=== PATIENT | male | born 1960 | race Caucasian/White ===

== ENCOUNTER 2020-10-03 16:36 | Inpatient (IN) | payer BC ==
--- NOTE | 2020-10-03 17:40 | ED ---
General Adult HPI - General Chief complaint: Shortness of Breath Stated complaint: Covid+, Low O2 Time Seen by Provider: 10/03/20 16:58 Source: patient Mode of arrival: wheelchair Limitations: no limitations - History of Present Illness Initial comments: Dictation was produced using [employer] dictation software. please excuse any grammatical, word or spelling errors. This patient was cared for during a federal and state declared state of emergency secondary to Covid 19 Chief Complaint: 59-year-old male presents with cold symptoms for one week History of Present Illness: Patient is a 59-year-old male he has past medical history of diabetes, hypertension. He presents to the emergency department for Covid symptoms. Patient states that he's been symptomatic for 7 days. He never tested positive. He spent having symptoms of shortness of breath, fever, chest pain, generalized weakness and muscle aches. He saw his primary care physician: Come to the emergency department because he may be a candidate for surgery in COVID-19 treatments. Patient states he is so weak and he can't walk because he gets so short of breath as well. He states that his multiple comorbidities. The ROS documented in this emergency department record has been reviewed and confirmed by me. Those systems with pertinent positive or negative responses have been documented in the HPI. All other systems are other negative and/or noncontributory. PHYSICAL EXAM: General Impression: Alert and oriented x3, not in acute distress HEENT: Normocephalic atraumatic, extra-ocular movements intact, pupils equal and reactive to light bilaterally, mucous membranes moist. Cardiovascular: Heart regular rate and rhythm Chest: Able to complete full sentences, no retractions, no tachypnea Abdomen: abdomen soft, non-tender, non-distended, no organomegaly Musculoskeletal: Pulses present and equal in all extremities, no peripheral edema Motor: no focal deficits noted Neurological: CN II-XII grossly intact, no focal motor or sensory deficits noted Skin: Intact with no visualized rashes Psych: Normal affect and mood ED course: 59-year-old male presents to the emergency department for Covid [place] for one week. He denies having had been tested. He was instructed, by his primary care physician. Vital signs upon arrival shows heart rate of 118, pulse ox of 89, worse vital signs within acceptable limits. phone number: Annette [phone] EKG interpretation: Ventricular rate 108, sinus tachycardia,. 162, QRS 90, QTc 455. No MT prolongation, no QTC prolongation, no ST or T-wave changes noted. Overall, this EKG is unremarkable Laboratory evaluation obtained. CBC, coag panel obtained showing no acute processes. Metabolic panel shows mild anion gap acidosis. Slightly from mild dehydration and starvation ketoacidosis. Coronal virus positive. Chest x-ray shows no acute processes. CT shows diffuse bilateral infiltrates. No PE. Patient given Decadron. He'll be admitted for hypoxic respiratory failure case discussed with Dr. Soliz was went except patient's care. Pulmonology be consulted. - Related Data Home Medications Medication Instructions Recorded Confirmed Albuterol Sulfate [Ventolin HFA] 2 puff INHALATION RT-Q4H PRN 10/03/20 10/03/20 HYDROcodone/APAP 10-325MG [[place] 1 tab PO Q8H PRN 10/03/20 10/03/20 10-325] Ivermectin 21 mg PO BID 10/03/20 10/03/20 fluvoxaMINE MALEATE 50 mg PO BID 10/03/20 10/03/20 lisinopriL 20 mg PO DAILY 10/03/20 10/03/20 metFORMIN HCL 500 mg PO DAILY 10/03/20 10/03/20 Allergies Allergy/AdvReac Type Severity Reaction Status Date / Time No Known Allergies Allergy Verified 10/03/20 18:19 Review of Systems ROS Statement: Those systems with pertinent positive or pertinent negative responses have been documented in the HPI. ROS Other: All systems not noted in ROS Statement are negative. Past Medical History Past Medical History: Diabetes Mellitus, Hypertension Additional Past Medical History / Comment(s): sleep apnea History of Any Multi-Drug Resistant Organisms: None Reported Past Surgical History: Back Surgery, Orthopedic Surgery Past Psychological History: No Psychological Hx Reported Smoking Status: Never smoker Past Alcohol Use History: None Reported Past Drug Use History: None Reported General Exam Limitations: no limitations Course Vital Signs 10/03/20 10/03/20 10/03/20 16:52 17:40 17:55 Temperature 99.2 F Pulse Rate 118 H 110 H Respiratory 20 20 Rate Blood Pressure 152/92 137/88 O2 Sat by Pulse 89 L 90 L 89 L Oximetry 10/03/20 10/03/20 19:17 19:21 Temperature Pulse Rate 109 H Respiratory 20 20 Rate Blood Pressure 142/96 O2 Sat by Pulse 90 L Oximetry Medical Decision Making - Lab Data Result diagrams: 10/03/20 17:35 10/03/20 17:35 Lab Results 10/03/20 10/03/20 10/03/20 Range/Units 17:35 17:35 17:35 WBC 10.5 (3.8-10.6) k/uL RBC 5.64 (4.30-5.90) m/uL Hgb 17.0 (13.0-17.5) gm/dL Hct 48.0 (39.0-53.0) % MCV 85.2 (80.0-100.0) fL MCH 30.1 (25.0-35.0) pg MCHC 35.3 (31.0-37.0) g/dL RDW 11.3 L (11.5-15.5) % Plt Count 204 (150-450) k/uL MPV 7.3 Neutrophils % 87 % Lymphocytes % 5 % Monocytes % 5 % Eosinophils % 0 % Basophils % 0 % Neutrophils # 9.1 H (1.3-7.7) k/uL Lymphocytes # 0.5 L (1.0-4.8) k/uL Monocytes # 0.5 (0-1.0) k/uL Eosinophils # 0.0 (0-0.7) k/uL Basophils # 0.0 (0-0.2) k/uL PT (9.0-12.0) sec INR (<1.2) APTT (22.0-30.0) sec Sodium 135 L (137-145) mmol/L Potassium 4.6 (3.5-5.1) mmol/L Chloride 98 (98-107) mmol/L Carbon Dioxide 19 L (22-30) mmol/L Anion Gap 18 mmol/L BUN 23 H (9-20) mg/dL Creatinine 0.95 (0.66-1.25) mg/dL Est GFR (CKD-EPI)AfAm >90 (>60 ml/min/1.73 sqM) Est GFR (CKD-EPI)NonAf 89 (>60 ml/min/1.73 sqM) Glucose 311 H (74-99) mg/dL Calcium 9.6 (8.4-10.2) mg/dL C-Reactive Protein 13.5 H (<1.0) mg/dL Influenza Type A (PCR) Not Detected (Not Detectd) Influenza Type B (PCR) Not Detected (Not Detectd) RSV (PCR) Not Detected (Not Detectd) SARS-CoV-2 (PCR) Detected A (Not Detectd) 10/03/20 Range/Units 17:35 WBC (3.8-10.6) k/uL RBC (4.30-5.90) m/uL Hgb (13.0-17.5) gm/dL Hct (39.0-53.0) % MCV (80.0-100.0) fL MCH (25.0-35.0) pg MCHC (31.0-37.0) g/dL RDW (11.5-15.5) % Plt Count (150-450) k/uL MPV Neutrophils % % Lymphocytes % % Monocytes % % Eosinophils % % Basophils % % Neutrophils # (1.3-7.7) k/uL Lymphocytes # (1.0-4.8) k/uL Monocytes # (0-1.0) k/uL Eosinophils # (0-0.7) k/uL Basophils # (0-0.2) k/uL PT 11.6 (9.0-12.0) sec INR 1.1 (<1.2) APTT 22.7 (22.0-30.0) sec Sodium (137-145) mmol/L Potassium (3.5-5.1) mmol/L Chloride (98-107) mmol/L Carbon Dioxide (22-30) mmol/L Anion Gap mmol/L BUN (9-20) mg/dL Creatinine (0.66-1.25) mg/dL Est GFR (CKD-EPI)AfAm (>60 ml/min/1.73 sqM) Est GFR (CKD-EPI)NonAf (>60 ml/min/1.73 sqM) Glucose (74-99) mg/dL Calcium (8.4-10.2) mg/dL C-Reactive Protein (<1.0) mg/dL Influenza Type A (PCR) (Not Detectd) Influenza Type B (PCR) (Not Detectd) RSV (PCR) (Not Detectd) SARS-CoV-2 (PCR) (Not Detectd) Disposition Clinical Impression: COVID-19 Disposition: ADMITTED IP TO THIS HOSP Condition: Fair Referrals: Nonstaff,Physician [REFERRING] - 1-2 days Decision Time: 19:40
[2020-10-03 17:53] LABS: Basophils % (A) 0 %; Eosinophils % (A) 0 %; Lymphocytes # (A) 0.5 k/uL (1.0-4.8); Lymphocytes % (A) 5 %; MCH 30.1 pg (25.0-35.0); MCHC 35.3 g/dL (31.0-37.0); MCV 85.2 fL (80.0-100.0); Mean Platelet Volume 7.3; Monocytes # (A) 0.5 k/uL (0-1.0); Monocytes % (A) 5 %; Neutrophils # (A) 9.1 k/uL (1.3-7.7); Neutrophils % (A) 87 %; Platelet Count 204 k/uL (150-450); RBC 5.64 m/uL (4.30-5.90); RDW 11.3 % (11.5-15.5); WBC 10.5 k/uL (3.8-10.6)
[2020-10-03] MEDS ORDERED: DEXAMETHASONE SOD PHOSPHATE 10 MG/ML 1 ML VIAL IV STA (17:59)
--- NOTE | 2020-10-03 17:59 | XR ---
EXAMINATION TYPE: XR chest 1V portable DATE OF EXAM: 10/03/2020 COMPARISON: NONE HISTORY: Short of breath. Cough. TECHNIQUE: Single view FINDINGS: Heart is normal. Lungs are clear of consolidation. There is no heart failure. There are no hilar masses. IMPRESSION: No active cardiopulmonary disease. Minimal fibrotic changes.
[2020-10-03 18:04] LABS: INR 1.1 (<1.2); Partial Thromboplastin Time 22.7 sec (22.0-30.0); Prothrombin Time 11.6 sec (9.0-12.0)
[2020-10-03 18:06] LABS: African American GFR (CKD) >90 (>60 ml/min/1.73 sqM); Anion Gap 18 mmol/L; Blood Urea Nitrogen 23 mg/dL (9-20); Calcium 9.6 mg/dL (8.4-10.2); Carbon Dioxide 19 mmol/L (22-30); Chloride 98 mmol/L (98-107); Glucose 311 mg/dL (74-99); Non-African American GFR(CKD) 89 (>60 ml/min/1.73 sqM); Potassium 4.6 mmol/L (3.5-5.1); Sodium 135 mmol/L (137-145)
[2020-10-03 18:17] LABS: C Reactive Protein 13.5 mg/dL (<1.0)
--- NOTE | 2020-10-03 19:34 | CT ---
EXAMINATION TYPE: CT angio chest DATE OF EXAM: 10/03/2020 COMPARISON: None HISTORY: Shortness of breath. CT DLP: 435 mGycm Automated exposure control for dose reduction was used. CONTRAST: Performed with IV Contrast, patient injected with 100 mL of Isovue 370. There are 3-D post processed images. There is reticular incisional patchy infiltrate in the posterior lung burgos. Heart size is normal. T here is no pericardial effusion. There is no pleural effusion. There are no hilar masses. There is no mediastinal adenopathy. There is normal contrast opacification of the pulmonary arteries. There are no filling defects. Thora cic aorta is intact. There is no aneurysm or dissection. Ascending aorta measures 3.6 cm. Bony thorax is intact. Sternum is intact. There is no compression fracture. The ribs appear intact. IMPRESSION: No evidence of pulmonary embolism. Posterior patchy pulmonary interstitial pneumonia.
[2020-10-03] MEDS ORDERED: NALOXONE 0.4 MG/ML 1 ML VIAL IV PRN (19:35)
[2020-10-03] MEDS ORDERED: ALBUTEROL HFA INHALER INHALATION PRN (21:42)
[2020-10-03] MEDS ORDERED: MAG HYDROX/AL HYDROX/SIMETH 30 ML CUP PO PRN (21:43)
[2020-10-03] MEDS: ENOXAPARIN 40 MG/0.4 ML SYRINGE SQ SCH (22:02)
[2020-10-03] MEDS: PANTOPRAZOLE 40 MG TABLET PO SCH (22:02)
[2020-10-03] MEDS: SODIUM CHLORIDE 0.9% 1,000 ML IV SCH (22:49)
[2020-10-03] MEDS ORDERED: CALCIUM CARBONATE 500 MG CHEWABLE PO PRN (23:12)
[2020-10-04] MEDS: ACETAMINOPHEN TAB 325 MG TAB PO PRN ×2 (02:16→22:23)
--- NOTE | 2020-10-04 02:17 | P.HPIM ---
History of Present Illness H&P Date: 10/03/20 Chief Complaint: SOB 59 year old male with hypertension and DM patient comes in with one week history of URI symptoms . started as dry coughing fever, chills and body aches. he saw his PCP , who started him on inhalers and ivermectine for COIVD. he noticed no overall improvement in his symptoms . patient is not vaccinated. he stays home, but admits that he avoids wearing masks when out of his home,. today he comes in due to worsening SOB over past 2 days , he cant even walk to the bathroom without getting SOB. he is also describing pleuritic chest pain when attempting deep breath . he denies any bleeding , or history of blood clots, no recent travel. he claims to be in good health overall. no other family members at home are sick at this time in the ED he tested positive for COVID, was found to be hypoxic , and improved with supplemental oxygen . admitted for close monitoring and care. CTA of the chest negative for acute PE EKG sinus tachy Review of Systems Pertinent positives as noted in HPI. All other systems were reviewed and are negative Past Medical History Past Medical History: Diabetes Mellitus, Hypertension Additional Past Medical History / Comment(s): sleep apnea History of Any Multi-Drug Resistant Organisms: None Reported Past Surgical History: Back Surgery, Orthopedic Surgery Past Anesthesia/Blood Transfusion Reactions: No Reported Reaction Past Psychological History: No Psychological Hx Reported Smoking Status: Never smoker Past Alcohol Use History: None Reported Past Drug Use History: None Reported - Past Family History family Family Medical History: No Reported History Medications and Allergies Home Medications Medication Instructions Recorded Confirmed Type Albuterol Sulfate [Ventolin HFA] 2 puff INHALATION RT-Q4H PRN 10/03/20 10/03/20 History HYDROcodone/APAP 10-325MG [[place] 1 tab PO Q8H PRN 10/03/20 10/03/20 History 10-325] RX: Ivermectin 21 mg PO BID 10/03/20 10/03/20 History RX: fluvoxaMINE MALEATE 50 mg PO BID 10/03/20 10/03/20 History RX: lisinopriL 20 mg PO DAILY 10/03/20 10/03/20 History RX: metFORMIN HCL 500 mg PO DAILY 10/03/20 10/03/20 History Allergies Allergy/AdvReac Type Severity Reaction Status Date / Time No Known Allergies Allergy Verified 10/03/20 18:19 Physical Exam Vitals: Vital Signs Temp Pulse Resp BP Pulse Ox 10/03/20 20:28 99.2 F 109 H 20 142/96 90 L 10/03/20 19:21 20 10/03/20 19:17 109 H 20 142/96 90 L 10/03/20 17:55 110 H 20 137/88 89 L 10/03/20 17:40 90 L 10/03/20 16:52 99.2 F 118 H 20 152/92 89 L Intake and Output 10/03/20 10/03/20 10/03/20 06:59 14:59 22:59 Other: Weight 98.883 kg Constitutional: anxious , takes shallow breaths , talks short sentences Eyes: Anicteric sclerae, moist conjunctiva, Pupils equal round reactive to light ENMT: NC/AT Oropharynx clear, no erythema, or exudates Neck: Supple, FROM, no masses, or JVD No carotid bruits No thyromegaly Lungs: Clear to auscultation Clear to percussion Normal respiratory effort, no accessory muscle use Cardiovascular: Heart tachycardia, normal s1 s2 No murmurs, gallops, or rubs No peripheral edema Abdominal: Soft Nontender, no guarding, rebound or rigidity Abdomen moving with respiration Normoactive bowel sounds No hepatomegaly, No splenomegaly No palpable mass No abdominal wall hernia noted Skin: Normal temperature, tone, texture, turgor No induration No subcutaneous nodules No rash, lesions No ulcers Extremities: No digital cyanosis No clubbing Pedal pulses intact and symmetrical Radial pulses intact and symmetrical No calf tenderness Psychiatric: Alert and oriented to person, place and time Appropriate affect fair judgement Neuro Muscles Strength 5/5 in all 4 extremities Sensation to light touch grossly present throughout Cranial nerves II-XII grossly intact No focal sensory deficits Lymphatics: no palpable cervical or supraclavicular , or inguinal lymph nodes Results CBC & Chem 7: 10/03/20 17:35 10/03/20 17:35 Labs: Abnormal Lab Results - Last 24 Hours (Table) 10/03/20 10/03/20 10/03/20 Range/Units 17:35 17:35 17:35 RDW 11.3 L (11.5-15.5) % Neutrophils # 9.1 H (1.3-7.7) k/uL Lymphocytes # 0.5 L (1.0-4.8) k/uL Sodium 135 L (137-145) mmol/L Carbon Dioxide 19 L (22-30) mmol/L BUN 23 H (9-20) mg/dL Glucose 311 H (74-99) mg/dL C-Reactive Protein 13.5 H (<1.0) mg/dL SARS-CoV-2 (PCR) Detected A (Not Detectd) Thrombosis Risk Factor Assmnt - Choose All That Apply Any of the Below Risk Factors Present?: Yes Each Factor Represents 1 point: Age 41-60 years, Medical pt on bed rest Other Risk Factors: No Other congenital or acquired thrombophilia - If yes, enter type in comment: No Thrombosis Risk Factor Assessment Total Risk Factor Score: 2 Thrombosis Risk Factor Assessment Level: Low Risk Assessment and Plan Assessment: acute hypoxic respiratory failure covid pneumonitis hypertension DM supplemental oxygen as needed decadrone daily vitamin c , zinc, vitamin D monitor vital signs follow inflammatory markers, d dimer, ferritin , ldh, crp follow up renal function pulmonary consult hold ivermectine and inhalers droplet and contact precautions supportive care check A1c , insuline sliding scale resume lisinopril lovenox for DVT PPX GERD tums pPI CODE STATUS:full code DVT prophylaxis: lovenox Discussed with: Patient, ER, RN Anticipated length of stay > than [address]: home A total of 65 minutes was spent on the care of this complex patient more than 50% of the time was spent in counseling and care coordination.
[2020-10-04 07:41] LABS: Glucose,Whole Blood 376 mg/dL (75-99)
[2020-10-04] MEDS: ASCORBIC ACID 500 MG TAB PO SCH (08:47)
[2020-10-04] MEDS: ZINC SULFATE 220 MG CAP PO SCH (08:47)
[2020-10-04] MEDS: PANTOPRAZOLE 40 MG TABLET PO SCH (08:47)
[2020-10-04] MEDS: dexAMETHasone 2 MG TAB PO SCH (08:47)
[2020-10-04] MEDS: lisinopriL 20 MG TAB PO SCH (08:47)
[2020-10-04] MEDS: ENOXAPARIN 40 MG/0.4 ML SYRINGE SQ SCH (08:47)
[2020-10-04] MEDS: CHOLECALCIFEROL 25 MCG (1000 IU) TABLET PO SCH (08:48)
[2020-10-04] MEDS: INSULIN ASPART (NovoLOG) 100 UNIT/ML VIAL SQ SCH ×4 (08:48→21:13)
--- NOTE | 2020-10-04 11:34 | P.PN ---
Objective - Vital Signs Vital signs: Vital Signs Temp 97.6 F 10/04/20 10:10 Pulse 106 H 10/04/20 10:10 Resp 20 10/04/20 10:10 BP 125/75 10/04/20 10:10 Pulse Ox 89 L 10/04/20 10:10 Intake & Output 10/03/20 10/04/20 10/04/20 18:59 06:59 18:59 Intake Total 240 Output Total 800 Balance 240 -800 Weight 98.883 kg 98.883 kg Intake: Intake, IV Titration 240 Amount Sodium Chloride 0.9% 1, 240 000 ml @ 20 mls/hr IV . Q24H [facility] Rx#:[id number] Output: Urine 800 - Labs CBC & Chem 7: 10/03/20 17:35 10/03/20 17:35 Labs: Abnormal Lab Results - Last 24 Hours (Table) 10/03/20 10/03/20 10/03/20 Range/Units 17:35 17:35 17:35 RDW 11.3 L (11.5-15.5) % Neutrophils # 9.1 H (1.3-7.7) k/uL Lymphocytes # 0.5 L (1.0-4.8) k/uL Sodium 135 L (137-145) mmol/L Carbon Dioxide 19 L (22-30) mmol/L BUN 23 H (9-20) mg/dL Glucose 311 H (74-99) mg/dL POC Glucose (mg/dL) (75-99) mg/dL C-Reactive Protein 13.5 H (<1.0) mg/dL SARS-CoV-2 (PCR) Detected A (Not Detectd) 10/04/20 Range/Units 07:38 RDW (11.5-15.5) % Neutrophils # (1.3-7.7) k/uL Lymphocytes # (1.0-4.8) k/uL Sodium (137-145) mmol/L Carbon Dioxide (22-30) mmol/L BUN (9-20) mg/dL Glucose (74-99) mg/dL POC Glucose (mg/dL) 376 H (75-99) mg/dL C-Reactive Protein (<1.0) mg/dL SARS-CoV-2 (PCR) (Not Detectd) Assessment and Plan Plan: 1. acute hypoxic respiratory failure secondary to COVID-19: Stable, continue on oxygen, requiring 2 L., Pulmonology consultation. 2. covid pneumonitis: Continue oxygen bronchodilators decadrone daily vitamin c , zinc, vitamin D, add Rocephin and Zithromax 3. Essential hypertension : Continue current medications, with lisinopril 4. Diabetes type 2 with hyperglycemia: Continue insulin sliding scale CODE STATUS:full code DVT prophylaxis: lovenox Discussed with: Patient Anticipated discharge place: home in 2-3 days
[2020-10-04 11:44] LABS: Basophils # (A) 0.03 X 10*3/uL (0.00-0.10); Basophils % (A) 0.3 %; Eosinophils # (A) 0 X 10*3/uL (0.04-0.35); Eosinophils % (A) 0 %; HCT 44.9 % (39.6-50.0); HGB 15.4 g/dL (13.0-17.0); Lymphocytes # (A) 0.63 X 10*3/uL (0.90-5.00); Lymphocytes % (A) 6.6 %; MCH 29.4 pg (27.0-32.0); MCHC 34.3 g/dL (32.0-37.0); MCV 85.7 fL (80.0-97.0); Mean Platelet Volume 10.9 fL (9.5-12.2); Monocytes % (A) 4.2 %; Neutrophils # (A) 8.51 X 10*3/uL (1.80-7.70); Neutrophils % (A) 88.5 %; Platelet Count 217 X 10*3/uL (140-440); RBC 5.24 X 10*6/uL (4.40-5.60); RDW 11.2 % (11.5-14.5); WBC 9.61 X 10*3/uL (4.50-10.00)
[2020-10-04] MEDS ORDERED: cefTRIAXone 1,000 MG VIAL (IM USE) IM SCH (11:45)
[2020-10-04 11:46] LABS: Glucose,Whole Blood 417 mg/dL (75-99)
[2020-10-04 12:23] LABS: African American GFR (CKD) 70.2 (60.0-200.0); Albumin 4.4 g/dL (3.80-4.90); Anion Gap 17.9 mmol/L (4.00-12.00); BUN/Creat Ratio 25.38 Ratio (12.00-20.00); C Reactive Protein 11.1 mg/dL (0.0-0.8); Calcium 9.4 mg/dL (8.7-10.3); Carbon Dioxide 19.1 mmol/L (21.6-31.8); Globulin 2.2 g/dL (1.6-3.3); Non-African American GFR(CKD) 60.6 (60.0-200.0); Potassium 4.6 mmol/L (3.5-5.5); Total Bilirubin 0.8 mg/dL (0.2-1.2); Total Protein 6.6 g/dL (6.2-8.2)
[2020-10-04] MEDS ORDERED: INSULIN ASPART (NovoLOG) 100 UNIT/ML VIAL SQ ONE (13:00)
[2020-10-04] MEDS ORDERED: REMDESIVIR 200 MG in SODIUM CHLORIDE 0.9% 250 ML IVPB ONE (13:00)
[2020-10-04 13:30] LABS: Ferritin 1686.5 ng/mL (22.0-322.0)
--- NOTE | 2020-10-04 14:14 | P.CNPUL ---
History of Present Illness Consult date: 10/04/20 Requesting physician: Renetta Thomson Reason for consult: dyspnea, hypoxemia, abnormal CXR/CT Chief complaint: COVID-19 pneumonia History of present illness: This is a 59-year-old white male patient with past medical history of hypertension, diabetes mellitus, lifetime nonsmoker, who presented to the emergency department yesterday on 10/03/2020 for evaluation of worsening cough, and shortness of breath. He diagnosed with COVID-19, his chest x-ray in the emergency department showed no active cardiopulmonary disease, and minimal fibrotic changes. His initial onset of symptoms was a week ago and started with the cough, fever and chills. He admits to having one episode of diarrhea, he st ates that the fever chills resolved, however his cough progressed, and he feels more short of breath with any exertion. His lab work was reviewed showing normal white count of 10.5, hemoglobin was 17, he had mild neutrophilia with the [place]rol count of 9.1, and lymphopenia with lymphocyte count of 0.5, d-dimer was negative at 0.50, electrolytes were unremarkable, CO2 is 19, B1 is 23 creatinine was 0.95. His glucose is quite elevated at 311, patient was started on Decadron in the emergency department, his LDH is 248, and CRP was 13.5, AST and ALT mildly elevated at 37 and 57 respectively, alkaline phosphatase is normal at 72. CTA chest showed no evidence of pulmonary embolism, and showed posterior patchy pulmonary interstitial pneumonia. Patient currently on Lovenox 40 mg, he was empirically started on azithromycin and Rocephin, pro-calcitonin level is pending, and he is on oral Decadron 6 mg daily Review of Systems All systems: negative Constitutional: Denies chills, Denies fever Eyes: denies blurred vision, denies pain Ears, nose, mouth and throat: Denies headache, Denies sore throat Cardiovascular: Denies chest pain, Denies shortness of breath Respiratory: Reports cough, Reports dyspnea Gastrointestinal: Denies abdominal pain, Denies diarrhea, Denies nausea, Denies vomiting Musculoskeletal: Denies myalgias Integumentary: Denies pruritus, Denies rash Neurological: Denies numbness, Denies weakness Psychiatric: Denies anxiety, Denies depression Endocrine: Denies fatigue, Denies weight change Past Medical History Past Medical History: Diabetes Mellitus, Hypertension Additional Past Medical History / Comment(s): sleep apnea History of Any Multi-Drug Resistant Organisms: None Reported Past Surgical History: Back Surgery, Orthopedic Surgery Past Anesthesia/Blood Transfusion Reactions: No Reported Reaction Past Psychological History: No Psychological Hx Reported Smoking Status: Never smoker Past Alcohol Use History: None Reported Past Drug Use History: None Reported - Past Family History family Family Medical History: No Reported History Medications and Allergies Home Medications Medication Instructions Recorded Confirmed Type Albuterol Sulfate [Ventolin HFA] 2 puff INHALATION RT-Q4H PRN 10/03/20 10/03/20 History HYDROcodone/APAP 10-325MG [[place] 1 tab PO Q8H PRN 10/03/20 10/03/20 History 10-325] Ivermectin 21 mg PO BID 10/03/20 10/03/20 History fluvoxaMINE MALEATE 50 mg PO BID 10/03/20 10/03/20 History lisinopriL 20 mg PO DAILY 10/03/20 10/03/20 History metFORMIN HCL 500 mg PO DAILY 10/03/20 10/03/20 History Allergies Allergy/AdvReac Type Severity Reaction Status Date / Time No Known Allergies Allergy Verified 10/03/20 18:19 Physical Exam Vitals: Vital Signs Temp Pulse Pulse Resp BP BP Pulse Ox 10/04/20 10:10 97.6 F 106 H 20 125/75 89 L 10/04/20 08:20 103 H 20 10/04/20 06:03 98.6 F 103 H 20 136/85 90 L 10/04/20 02:00 98 F 109 H 16 145/93 90 L 10/03/20 21:11 98.6 F 103 H 20 146/81 87 L 10/03/20 20:28 99.2 F 109 H 20 142/96 90 L 10/03/20 20:00 103 H 20 10/03/20 19:21 20 10/03/20 19:17 109 H 20 142/96 90 L 10/03/20 17:55 110 H 20 137/88 89 L 10/03/20 17:40 90 L 10/03/20 16:52 99.2 F 118 H 20 152/92 89 L Intake and Output 10/03/20 10/04/20 10/04/20 22:59 06:59 14:59 Intake Total 240 Output Total 800 Balance 240 -800 Intake: Intake, IV Titration 240 Amount Sodium Chloride 0.9% 1, 240 000 ml @ 20 mls/hr IV . Q24H [facility] Rx#:[id number] Output: Urine 800 Other: Weight 98.883 kg GENERAL EXAM: Alert, very pleasant 59-year-old white male on 2 l of oxygen, comfortable in no apparent distress. HEAD: Normocephalic/atraumatic. EYES: Normal reaction of pupils, equal size. Conjunctiva pink, sclera white. NOSE: Clear with pink turbinates. THROAT: No erythema or exudates. NECK: No masses, no JVD, no thyroid enlargement, no adenopathy. CHEST: No chest wall deformity. Symmetrical expansion. LUNGS: Equal air entry with no crackles, wheeze, rhonchi or dullness. CVS: Regular rate and rhythm, normal S1 and S2, no gallops, no murmurs, no rubs ABDOMEN: Soft, nontender. No hepatosplenomegaly, normal bowel sounds, no guarding or rigidity. EXTREMITIES: No clubbing, no edema, no cyanosis, 2+ pulses and upper and lower extremities. MUSCULOSKELETAL: Muscle strength and tone normal. SPINE: No scoliosis or deformity SKIN: No rashes CENTRAL NERVOUS SYSTEM: Alert and oriented -3. No focal deficits, tone is normal in all 4 extremities. PSYCHIATRIC: Alert and oriented -3. Appropriate affect. Intact judgment and insight. Results - Laboratory Findings CBC and BMP: 10/04/20 08:11 10/04/20 08:11 PT/INR, D-dimer PT 11.6 sec (9.0-12.0) 10/03/20 17:35 INR 1.1 (<1.2) 10/03/20 17:35 D-Dimer 0.50 mg/L FEU (<0.60) 10/04/20 08:11 Abnormal lab findings: Abnormal Labs 10/03/20 10/03/20 10/03/20 17:35 17:35 17:35 RDW 11.3 L Neutrophils # 9.1 H Lymphocytes # 0.5 L Eosinophils # Sodium 135 L Chloride Carbon Dioxide 19 L Anion Gap BUN 23 H BUN/Creatinine Ratio Glucose 311 H POC Glucose (mg/dL) Ferritin AST ALT Lactate Dehydrogenase C-Reactive Protein 13.5 H SARS-CoV-2 (PCR) Detected A 10/04/20 10/04/20 10/04/20 07:38 08:11 08:11 RDW 11.2 L Neutrophils # 8.51 H Lymphocytes # 0.63 L Eosinophils # 0 L Sodium 132 L Chloride 95 L Carbon Dioxide 19.1 L Anion Gap 17.90 H BUN 33.0 H BUN/Creatinine Ratio 25.38 H Glucose 388 H POC Glucose (mg/dL) 376 H Ferritin 1686.5 H AST 37 H ALT 57 H Lactate Dehydrogenase 248 H C-Reactive Protein 11.1 H SARS-CoV-2 (PCR) 10/04/20 11:41 RDW Neutrophils # Lymphocytes # Eosinophils # Sodium Chloride Carbon Dioxide Anion Gap BUN BUN/Creatinine Ratio Glucose POC Glucose (mg/dL) 417 H Ferritin AST ALT Lactate Dehydrogenase C-Reactive Protein SARS-CoV-2 (PCR) - Diagnostic Findings Chest x-ray: report reviewed, image reviewed CT scan - chest: report reviewed, image reviewed Assessment and Plan Plan: Assessment: #1. Acute hypoxic respiratory failure related to acute COVID-19 pneumonia, patient is a candidate for Remdesivir, will be started on the today on 10/04/2020. One dose of convalescent plasma was also ordered, in addition to prophylactic anticoagulation and steroids #2. Mild hyponatremia likely related to hypovolemia, and hyper glycemia #3. History of hypertension #4. Diabetes mellitus type 2 #5. Nonsmoker Plan: We'll start the patient on Remdesivir Give 1 units of convalescent plasma We'll continue Decadron Blood sugar control We'll continue current dose Lovenox Procalcitonin level Follow-up basic labs tomorrow We'll continue to closely follow his clinical course I performed a history & physical examination of the patient and discussed their management with my nurse practitioner, Amparo Drew. I reviewed the nurse practitioner's note and agree with the documented findings and plan of care. Lung sounds are positive for bibasilar crackles The findings and the impression was discussed with the patient. I attest to the documentation by the nurse practitioner. Time with Patient: Greater than 30
[2020-10-04 14:50] LABS: Hemoglobin A1C 10.9 % (4.0-6.0)
[2020-10-04] MEDS: AZITHROMYCIN 500 MG in SODIUM CHLORIDE 0.9% 250 ML IVPB SCH (15:44)
[2020-10-04 17:38] LABS: Glucose,Whole Blood 277 mg/dL (75-99)
[2020-10-04] MEDS: SODIUM CHLORIDE 0.9% 1,000 ML IV SCH (18:47)
[2020-10-04 21:08] LABS: Glucose,Whole Blood 283 mg/dL (75-99)
[2020-10-05 07:13] LABS: Glucose,Whole Blood 303 mg/dL (75-99)
[2020-10-05] MEDS: ZINC SULFATE 220 MG CAP PO SCH (07:41)
[2020-10-05] MEDS: dexAMETHasone 2 MG TAB PO SCH (07:41)
[2020-10-05] MEDS: CHOLECALCIFEROL 25 MCG (1000 IU) TABLET PO SCH (07:42)
[2020-10-05] MEDS: INSULIN ASPART (NovoLOG) 100 UNIT/ML VIAL SQ SCH ×4 (07:42→20:55)
[2020-10-05] MEDS: ASCORBIC ACID 500 MG TAB PO SCH (07:42)
[2020-10-05] MEDS: ENOXAPARIN 40 MG/0.4 ML SYRINGE SQ SCH (07:42)
[2020-10-05] MEDS: PANTOPRAZOLE 40 MG TABLET PO SCH (07:42)
[2020-10-05] MEDS: lisinopriL 20 MG TAB PO SCH (07:42)
[2020-10-05 11:44] LABS: Basophils # (A) 0.04 X 10*3/uL (0.00-0.10); Basophils % (A) 0.2 %; Eosinophils # (A) 0 X 10*3/uL (0.04-0.35); Eosinophils % (A) 0 %; HGB 14.7 g/dL (13.0-17.0); Lymphocytes # (A) 0.62 X 10*3/uL (0.90-5.00); Lymphocytes % (A) 3.4 %; MCH 29.3 pg (27.0-32.0); MCHC 34.2 g/dL (32.0-37.0); MCV 85.7 fL (80.0-97.0); Mean Platelet Volume 10.8 fL (9.5-12.2); Monocytes # (A) 1.18 X 10*3/uL (0.20-1.00); Monocytes % (A) 6.4 %; Neutrophils % (A) 89.6 %; Platelet Count 269 X 10*3/uL (140-440); RBC 5.02 X 10*6/uL (4.40-5.60); RDW 11.2 % (11.5-14.5); WBC 18.42 X 10*3/uL (4.50-10.00)
[2020-10-05 11:58] LABS: Glucose,Whole Blood 309 mg/dL (75-99)
--- NOTE | 2020-10-05 12:07 | P.PN ---
Subjective Progress Note Date: 10/05/20 Feels okay, on 5 L of oxygen. No chest pain no abdominal pain, no nausea or vomiting. Objective - Vital Signs Vital signs: Vital Signs Temp 98.1 F 10/05/20 09:49 Pulse 101 H 10/05/20 09:49 Resp 18 10/05/20 09:49 BP 138/71 10/05/20 09:49 Pulse Ox 90 L 10/05/20 09:49 Intake & Output 10/04/20 10/05/20 10/05/20 18:59 06:59 18:59 Intake Total 200 Output Total 1700 900 Balance -1700 200 -900 Intake: Blood Product 200 Ffp Pher Conval Covid19 200 Acda 3 Unit [id number] Output: Urine 1700 900 Other: Voiding Method Urinal Urinal # Voids 2 2 - Exam Constitutional: No acute distress, conversant, pleasant Eyes: Anicteric sclerae, moist conjunctiva ENMT: NC/AT Neck:Supple, FROM, no masses, or JVD, No carotid bruits; No thyromegaly Lungs: Clear to auscultation, Clear to percussion, Normal respiratory effort, no accessory muscle use Cardiovascular: Heart regular in rate and rhythm, No murmurs, gallops, or rubs no peripheral edema Abdominal: Soft Nontender, nom distended, no guarding, no rebound or rigidity, Normoactive bowel sounds No hepatomegaly, No splenomegaly, No palpable mass No abdominal wall hernia noted Skin: Normal temperature, tone, texture, turgor, No induration No subcutaneous nodules, No rash, lesions, No ulcers Extremities:No digital cyanosis No clubbing, Pedal pulses intact and symmetrical Radial pulses intact and symmetrical Normal gait and station, No calf tenderness Psychiatric: Alert and oriented to person, place and time, Appropriate affect Intact judgement Neuro: Muscles Strength 5/5 in all 4 extremities, Sensation to light touch grossly present throughout, Cranial nerves II-XII grossly intact. No focal sensory deficits - Labs CBC & Chem 7: 10/05/20 06:58 10/04/20 08:11 Labs: Abnormal Lab Results - Last 24 Hours (Table) 10/04/20 10/04/20 10/04/20 Range/Units 08:11 08:11 12:49 WBC (4.50-10.00) X 10*3/uL RDW (11.5-14.5) % Immature Gran # (0.00-0.04) X 10*3/uL Neutrophils # (1.80-7.70) X 10*3/uL Lymphocytes # (0.90-5.00) X 10*3/uL Monocytes # (0.20-1.00) X 10*3/uL Eosinophils # (0.04-0.35) X 10*3/uL Sodium 132 L (135-145) mmol/L Chloride 95 L (96-109) mmol/L Carbon Dioxide 19.1 L (21.6-31.8) mmol/L Anion Gap 17.90 H (4.00-12.00) mmol/L BUN 33.0 H (9.0-27.0) mg/dL BUN/Creatinine Ratio 25.38 H (12.00-20.00) Ratio Glucose 388 H (70-110) mg/dL POC Glucose (mg/dL) (75-99) mg/dL Hemoglobin A1c 10.9 H (4.0-6.0) % Ferritin 1686.5 H (22.0-322.0) ng/mL AST 37 H (14-35) U/L ALT 57 H (10-49) U/L Lactate Dehydrogenase 248 H (120-246) U/L C-Reactive Protein 11.1 H (0.0-0.8) mg/dL Procalcitonin 0.47 H (0.02-0.09) ng/mL 10/04/20 10/04/20 10/05/20 Range/Units 17:25 21:05 06:58 WBC 18.42 H (4.50-10.00) X 10*3/uL RDW 11.2 L (11.5-14.5) % Immature Gran # 0.08 H (0.00-0.04) X 10*3/uL Neutrophils # 16.50 H (1.80-7.70) X 10*3/uL Lymphocytes # 0.62 L (0.90-5.00) X 10*3/uL Monocytes # 1.18 H (0.20-1.00) X 10*3/uL Eosinophils # 0 L (0.04-0.35) X 10*3/uL Sodium (135-145) mmol/L Chloride (96-109) mmol/L Carbon Dioxide (21.6-31.8) mmol/L Anion Gap (4.00-12.00) mmol/L BUN (9.0-27.0) mg/dL BUN/Creatinine Ratio (12.00-20.00) Ratio Glucose (70-110) mg/dL POC Glucose (mg/dL) 277 H 283 H (75-99) mg/dL Hemoglobin A1c (4.0-6.0) % Ferritin (22.0-322.0) ng/mL AST (14-35) U/L ALT (10-49) U/L Lactate Dehydrogenase (120-246) U/L C-Reactive Protein (0.0-0.8) mg/dL Procalcitonin (0.02-0.09) ng/mL 10/05/20 10/05/20 Range/Units 07:11 11:56 WBC (4.50-10.00) X 10*3/uL RDW (11.5-14.5) % Immature Gran # (0.00-0.04) X 10*3/uL Neutrophils # (1.80-7.70) X 10*3/uL Lymphocytes # (0.90-5.00) X 10*3/uL Monocytes # (0.20-1.00) X 10*3/uL Eosinophils # (0.04-0.35) X 10*3/uL Sodium (135-145) mmol/L Chloride (96-109) mmol/L Carbon Dioxide (21.6-31.8) mmol/L Anion Gap (4.00-12.00) mmol/L BUN (9.0-27.0) mg/dL BUN/Creatinine Ratio (12.00-20.00) Ratio Glucose (70-110) mg/dL POC Glucose (mg/dL) 303 H 309 H (75-99) mg/dL Hemoglobin A1c (4.0-6.0) % Ferritin (22.0-322.0) ng/mL AST (14-35) U/L ALT (10-49) U/L Lactate Dehydrogenase (120-246) U/L C-Reactive Protein (0.0-0.8) mg/dL Procalcitonin (0.02-0.09) ng/mL Assessment and Plan Plan: 1. acute hypoxic respiratory failure secondary to COVID-19: Stable, continue on oxygen, requiring 5 L., Pulmonology consultation. Received plasma, on Remdesivir 2. covid pneumonitis: Continue oxygen bronchodilators decadrone daily vitamin c , zinc, vitamin D, add Rocephin and Zithromax 3. Essential hypertension : Continue current medications, with lisinopril 4. Diabetes type 2 with hyperglycemia: Continue insulin sliding scale CODE STATUS:full code DVT prophylaxis: lovenox Discussed with: Patient Anticipated discharge place: home in 2-3 days
[2020-10-05 12:13] LABS: African American GFR (CKD) 85.9 (60.0-200.0); Albumin/Globulin Ratio 1.9 (1.60-3.17); Anion Gap 12.6 mmol/L (4.00-12.00); BUN/Creat Ratio 32.73 Ratio (12.00-20.00); Calcium 8.9 mg/dL (8.7-10.3); Carbon Dioxide 24.4 mmol/L (21.6-31.8); Globulin 2.1 g/dL (1.6-3.3); Non-African American GFR(CKD) 74.1 (60.0-200.0); Potassium 4.5 mmol/L (3.5-5.5); Total Bilirubin 0.7 mg/dL (0.2-1.2); Total Protein 6.1 g/dL (6.2-8.2)
[2020-10-05] MEDS: AZITHROMYCIN 500 MG in SODIUM CHLORIDE 0.9% 250 ML IVPB SCH (12:26)
[2020-10-05] MEDS: REMDESIVIR 100 MG in SODIUM CHLORIDE 0.9% 250 ML IVPB SCH (13:48)
--- NOTE | 2020-10-05 14:22 | P.PN ---
Subjective Progress Note Date: 10/05/20 Principal diagnosis: COVID-19 pneumonia This is a 59-year-old white male patient with past medical history of hypertension, diabetes mellitus, lifetime nonsmoker, who presented to the emergency department yesterday on 10/03/2020 for evaluation of worsening cough, and shortness of breath. He diagnosed with COVID-19, his chest x-ray in the emergency department showed no active cardiopulmonary disease, and minimal fibrotic changes. His initial onset of symptoms was a week ago and started with the cough, fever and chills. He admits to having one episode of diarrhea, he states that the fever chills resolved, however his cough progressed, and he feels more short of breath with any exertion. His lab work was reviewed showing normal white count of 10.5, hemoglobin was 17, he had mild neutrophilia with the Detrol count of 9.1, and lymphopenia with lymphocyte count of 0.5, d-dimer was negative at 0.50, electrolytes were unremarkable, CO2 is 19, B1 is 23 creatinine was 0.95. His glucose is quite elevated at 311, patient was started on Decadron in the emergency department, his LDH is 248, and CRP was 13.5, AST and ALT mildly elevated at 37 and 57 respectively, alkaline phosphatase is normal at 72. CTA chest showed no evidence of pulmonary embolism, and showed posterior patchy pulmonary interstitial pneumonia. Patient currently on Lovenox 40 mg, he was empirically started on azithromycin and Rocephin, pro-calcitonin level is pending, and he is on oral Decadron 6 mg daily On 10/05/2020 patient seen in follow-up on medical surgical floor. Is having coughing spells, and is unable to take deep breaths, he is got shallow respirations, he is currently on 5 L of oxygen, pulse ox was around 90%. He is not able to do the incentive spirometer very well because it sends them into a coughing jag. Did have low-grade fevers early this morning with a temp of 100F . No complaints of chest discomfort, lung sounds reveal diffuse coarse crackles. Patient is on day 2 of Remdesivir, he received 1 unit of convalescent plasma. He also continues on azithromycin and Rocephin, dexamethasone 6 program daily, and prophylactic Lovenox. Today's labs have been reviewed showing white blood cell count 18.42, hemoglobin is 14.7, electrolytes are within normal limits, B1 is 36 and creatinine is 1.1. AST and ALT are relatively stable at 37 and 53 respectively, pro-calcitonin level was borderline at 0.47, and possibly a bacterial infection is also being considered patient is covered with Rocephin and Zithromax Objective - Vital Signs Vital signs: Vital Signs Temp 98.1 F 10/05/20 09:49 Pulse 101 H 10/05/20 09:49 Resp 18 10/05/20 09:49 BP 138/71 10/05/20 09:49 Pulse Ox 90 L 10/05/20 09:49 Intake & Output 10/04/20 10/05/20 10/05/20 18:59 06:59 18:59 Intake Total 200 Output Total 1700 900 Balance -1700 200 -900 Intake: Blood Product 200 Ffp Pher Conval Covid19 200 Acda 3 Unit [id number] Output: Urine 1700 900 Other: Voiding Method Urinal Urinal # Voids 2 2 - Exam GENERAL EXAM: Alert, very pleasant 59-year-old white male on 5 l of oxygen, comfortable in no apparent distress. HEAD: Normocephalic/atraumatic. EYES: Normal reaction of pupils, equal size. Conjunctiva pink, sclera white. NOSE: Clear with pink turbinates. THROAT: No erythema or exudates. NECK: No masses, no JVD, no thyroid enlargement, no adenopathy. CHEST: No chest wall deformity. Symmetrical expansion. LUNGS: Equal air entry with no crackles, wheeze, rhonchi or dullness. CVS: Regular rate and rhythm, normal S1 and S2, no gallops, no murmurs, no rubs ABDOMEN: Soft, nontender. No hepatosplenomegaly, normal bowel sounds, no guarding or rigidity. EXTREMITIES: No clubbing, no edema, no cyanosis, 2+ pulses and upper and lower extremities. MUSCULOSKELETAL: Muscle strength and tone normal. SPINE: No scoliosis or deformity SKIN: No rashes CENTRAL NERVOUS SYSTEM: Alert and oriented -3. No focal deficits, tone is normal in all 4 extremities. PSYCHIATRIC: Alert and oriented -3. Appropriate affect. Intact judgment and insight. - Labs CBC & Chem 7: 10/05/20 06:58 10/05/20 06:58 Labs: Abnormal Lab Results - Last 24 Hours (Table) 05/01/21 05/01/21 05/01/21 Range/Units 08:11 12:49 17:25 WBC (4.50-10.00) X 10*3/uL RDW (11.5-14.5) % Immature Gran # (0.00-0.04) X 10*3/uL Neutrophils # (1.80-7.70) X 10*3/uL Lymphocytes # (0.90-5.00) X 10*3/uL Monocytes # (0.20-1.00) X 10*3/uL Eosinophils # (0.04-0.35) X 10*3/uL Anion Gap (4.00-12.00) mmol/L BUN (9.0-27.0) mg/dL BUN/Creatinine Ratio (12.00-20.00) Ratio Glucose (70-110) mg/dL POC Glucose (mg/dL) 277 H (75-99) mg/dL Hemoglobin A1c 10.9 H (4.0-6.0) % AST (14-35) U/L ALT (10-49) U/L Total Protein (6.2-8.2) g/dL Procalcitonin 0.47 H (0.02-0.09) ng/mL 10/04/20 10/05/20 10/05/20 Range/Units 21:05 06:58 06:58 WBC 18.42 H (4.50-10.00) X 10*3/uL RDW 11.2 L (11.5-14.5) % Immature Gran # 0.08 H (0.00-0.04) X 10*3/uL Neutrophils # 16.50 H (1.80-7.70) X 10*3/uL Lymphocytes # 0.62 L (0.90-5.00) X 10*3/uL Monocytes # 1.18 H (0.20-1.00) X 10*3/uL Eosinophils # 0 L (0.04-0.35) X 10*3/uL Anion Gap 12.60 H (4.00-12.00) mmol/L BUN 36.0 H (9.0-27.0) mg/dL BUN/Creatinine Ratio 32.73 H (12.00-20.00) Ratio Glucose 297 H (70-110) mg/dL POC Glucose (mg/dL) 283 H (75-99) mg/dL Hemoglobin A1c (4.0-6.0) % AST 37 H (14-35) U/L ALT 53 H (10-49) U/L Total Protein 6.1 L (6.2-8.2) g/dL Procalcitonin (0.02-0.09) ng/mL 10/05/20 10/05/20 Range/Units 07:11 11:56 WBC (4.50-10.00) X 10*3/uL RDW (11.5-14.5) % Immature Gran # (0.00-0.04) X 10*3/uL Neutrophils # (1.80-7.70) X 10*3/uL Lymphocytes # (0.90-5.00) X 10*3/uL Monocytes # (0.20-1.00) X 10*3/uL Eosinophils # (0.04-0.35) X 10*3/uL Anion Gap (4.00-12.00) mmol/L BUN (9.0-27.0) mg/dL BUN/Creatinine Ratio (12.00-20.00) Ratio Glucose (70-110) mg/dL POC Glucose (mg/dL) 303 H 309 H (75-99) mg/dL Hemoglobin A1c (4.0-6.0) % AST (14-35) U/L ALT (10-49) U/L Total Protein (6.2-8.2) g/dL Procalcitonin (0.02-0.09) ng/mL Assessment and Plan Plan: Assessment: #1. Acute hypoxic respiratory failure related to acute COVID-19 pneumonia, patient is a candidate for Remdesivir, will be started on 10/04/2020. One dose of convalescent plasma was also ordered, in addition to prophylactic anticoagulation and steroids #2. Mild hyponatremia likely related to hypovolemia, and hyperglycemia #3. History of hypertension #4. Diabetes mellitus type 2 #5. Nonsmoker #6. Elevated transaminases, likely related to viral pneumonia Plan: Continue Remdesivir, today is day 2 of treatment Continue current dose Decadron, prophylactic Lovenox, continue empiric antibiotics, Legionella urine antigen was sent, Continue inhalers Continue following patient's clinical course I performed a history & physical examination of the patient and discussed their management with my nurse practitioner, Amparo Drew. I reviewed the nurse practitioner's note and agree with the documented findings and plan of care. Lung sounds are positive for bibasilar crackles The findings and the impression was discussed with the patient. I attest to the documentation by the nurse practitioner. Time with Patient: Less than 30
[2020-10-05 17:05] LABS: Glucose,Whole Blood 300 mg/dL (75-99)
[2020-10-05] MEDS: guaiFENesin-DM 100-10MG/5ML 10 ML CUP PO PRN ×2 (18:18→23:26)
[2020-10-05] MEDS: SODIUM CHLORIDE 0.9% 1,000 ML IV SCH (18:38)
[2020-10-05 20:56] LABS: Glucose,Whole Blood 289 mg/dL (75-99)
[2020-10-06] MEDS: HYDROcodone/APAP 10-325MG 1 EACH TAB PO PRN ×2 (01:53→17:10)
[2020-10-06 07:06] LABS: Glucose,Whole Blood 252 mg/dL (75-99)
[2020-10-06] MEDS: CHOLECALCIFEROL 25 MCG (1000 IU) TABLET PO SCH (07:10)
[2020-10-06] MEDS: ASCORBIC ACID 500 MG TAB PO SCH (07:10)
[2020-10-06] MEDS: lisinopriL 20 MG TAB PO SCH (07:10)
[2020-10-06] MEDS: INSULIN ASPART (NovoLOG) 100 UNIT/ML VIAL SQ SCH ×4 (07:10→21:30)
[2020-10-06] MEDS: PANTOPRAZOLE 40 MG TABLET PO SCH (07:10)
[2020-10-06] MEDS: ZINC SULFATE 220 MG CAP PO SCH (07:10)
[2020-10-06] MEDS: dexAMETHasone 2 MG TAB PO SCH (07:10)
[2020-10-06] MEDS: ENOXAPARIN 40 MG/0.4 ML SYRINGE SQ SCH (07:10)
[2020-10-06] MEDS: guaiFENesin-DM 100-10MG/5ML 10 ML CUP PO PRN (07:11)
[2020-10-06 09:02] LABS: Basophils # (A) 0.01 X 10*3/uL (0.00-0.10); Basophils % (A) 0.1 %; Eosinophils # (A) 0 X 10*3/uL (0.04-0.35); Eosinophils % (A) 0 %; HCT 40.4 % (39.6-50.0); HGB 13.9 g/dL (13.0-17.0); Lymphocytes # (A) 0.82 X 10*3/uL (0.90-5.00); Lymphocytes % (A) 6.4 %; MCH 29.8 pg (27.0-32.0); MCHC 34.4 g/dL (32.0-37.0); MCV 86.7 fL (80.0-97.0); Mean Platelet Volume 10.6 fL (9.5-12.2); Monocytes # (A) 1.14 X 10*3/uL (0.20-1.00); Monocytes % (A) 8.9 %; Neutrophils # (A) 10.82 X 10*3/uL (1.80-7.70); Neutrophils % (A) 84.2 %; Platelet Count 295 X 10*3/uL (140-440); RBC 4.66 X 10*6/uL (4.40-5.60); RDW 11.3 % (11.5-14.5); WBC 12.84 X 10*3/uL (4.50-10.00)
[2020-10-06 11:28] LABS: African American GFR (CKD) 96.4 (60.0-200.0); Albumin 3.7 g/dL (3.80-4.90); Albumin/Globulin Ratio 1.95 (1.60-3.17); Anion Gap 8.6 mmol/L (4.00-12.00); Calcium 8.3 mg/dL (8.7-10.3); Carbon Dioxide 24.4 mmol/L (21.6-31.8); Globulin 1.9 g/dL (1.6-3.3); Non-African American GFR(CKD) 83.2 (60.0-200.0); Potassium 4.4 mmol/L (3.5-5.5); Total Bilirubin 0.6 mg/dL (0.2-1.2); Total Protein 5.6 g/dL (6.2-8.2)
[2020-10-06] MEDS: AZITHROMYCIN 500 MG in SODIUM CHLORIDE 0.9% 250 ML IVPB SCH (11:36)
[2020-10-06 12:16] LABS: Glucose,Whole Blood 245 mg/dL (75-99)
--- NOTE | 2020-10-06 12:26 | P.PN ---
Subjective Progress Note Date: 10/06/20 Principal diagnosis: COVID-19 pneumonia This is a 59-year-old white male patient with past medical history of hypertension, diabetes mellitus, lifetime nonsmoker, who presented to the emergency department yesterday on 10/03/2020 for evaluation of worsening cough, and shortness of breath. He diagnosed with COVID-19, his chest x-ray in the emergency department showed no active cardiopulmonary disease, and minimal fibrotic changes. His initial onset of symptoms was a week ago and started with the cough, fever and chills. He admits to having one episode of diarrhea, he states that the fever chills resolved, however his cough progressed, and he feels more short of breath with any exertion. His lab work was reviewed showing normal white count of 10.5, hemoglobin was 17, he had mild neutrophilia with the Detrol count of 9.1, and lymphopenia with lymphocyte count of 0.5, d-dimer was negative at 0.50, electrolytes were unremarkable, CO2 is 19, B1 is 23 creatinine was 0.95. His glucose is quite elevated at 311, patient was started on Decadron in the emergency department, his LDH is 248, and CRP was 13.5, AST and ALT mildly elevated at 37 and 57 respectively, alkaline phosphatase is normal at 72. CTA chest showed no evidence of pulmonary embolism, and showed posterior patchy pulmonary interstitial pneumonia. Patient currently on Lovenox 40 mg, he was empirically started on azithromycin and Rocephin, pro-calcitonin level is pending, and he is on oral Decadron 6 mg daily On 10/05/2020 patient seen in follow-up on medical surgical floor. Is having coughing spells, and is unable to take deep breaths, he is got shallow respirations, he is currently on 5 L of oxygen, pulse ox was around 90%. He is not able to do the incentive spirometer very well because it sends them into a coughing jag. Did have low-grade fevers early this morning with a temp of 100F . No complaints of chest discomfort, lung sounds reveal diffuse coarse crackles. Patient is on day 2 of Remdesivir, he received 1 unit of convalescent plasma. He also continues on azithromycin and Rocephin, dexamethasone 6 program daily, and prophylactic Lovenox. Today's labs have been reviewed showing white blood cell count 18.42, hemoglobin is 14.7, electrolytes are within normal limits, B1 is 36 and creatinine is 1.1. AST and ALT are relatively stable at 37 and 53 respectively, pro-calcitonin level was borderline at 0.47, and possibly a bacterial infection is also being considered patient is covered with Rocephin and Zithromax On 10/06/2030 patient seen in follow-up medical surgical floor, he is resting comfortably in bed, he is in no acute distress, his pulse ox on 5 L is 93%, he states his cough is improving, but still unable to take deep breast because of coughing spells, he states there is less burning in his chest with coughing episodes, he is on day 3 of Remdesivir treatment, he status post transfusion with 1 unit of convalescent plasma, he remains on multivitamins, he is on prophylactic dose Lovenox, and Decadron 6 mg daily, Legionella urine antigen came back negative, patient is on azithromycin and Rocephin, today's labs have been reviewed showing white blood cell count of 12.8, which is improving, electrolytes are within normal limits, BUN of 30, creatinine is 1. He's had no acute events overnight, his afebrile. Breathing more comfortably, he is working on incentive spirometer. Objective - Vital Signs Vital signs: Vital Signs Temp 98.5 F 10/06/20 09:33 Pulse 87 10/06/20 09:33 Resp 18 10/06/20 09:33 BP 134/81 10/06/20 09:33 Pulse Ox 93 L 10/06/20 09:33 Intake & Output 10/05/20 10/06/20 10/06/20 18:59 06:59 18:59 Intake Total 1200 300 Output Total 1400 Balance -200 300 Intake: Intake, IV Titration 550 Amount Azithromycin 500 mg In 250 Sodium Chloride 0.9% 250 ml @ 250 mls/hr IVPB Q24H [facility] Rx#:[id number] Remdesivir 100 mg In 250 Sodium Chloride 0.9% 250 ml @ 250 mls/hr IVPB Q24H [facility] Rx#:[id number] cefTRIAXone 1 gm In 50 Sodium Chloride 0.9% 50 ml @ 100 mls/hr IVPB Q24H [facility] Rx#:[id number] Oral 650 300 Output: Urine 1400 Other: Voiding Method Urinal # Voids 4 2 - Exam GENERAL EXAM: Alert, very pleasant 59-year-old white male on 5 l of oxygen, pulse ox is 93% comfortable in no apparent distress. HEAD: Normocephalic/atraumatic. EYES: Normal reaction of pupils, equal size. Conjunctiva pink, sclera white. NOSE: Clear with pink turbinates. THROAT: No erythema or exudates. NECK: No masses, no JVD, no thyroid enlargement, no adenopathy. CHEST: No chest wall deformity. Symmetrical expansion. LUNGS: Equal air entry with no crackles, wheeze, rhonchi or dullness. CVS: Regular rate and rhythm, normal S1 and S2, no gallops, no murmurs, no rubs ABDOMEN: Soft, nontender. No hepatosplenomegaly, normal bowel sounds, no guarding or rigidity. EXTREMITIES: No clubbing, no edema, no cyanosis, 2+ pulses and upper and lower extremities. MUSCULOSKELETAL: Muscle strength and tone normal. SPINE: No scoliosis or deformity SKIN: No rashes CENTRAL NERVOUS SYSTEM: Alert and oriented -3. No focal deficits, tone is normal in all 4 extremities. PSYCHIATRIC: Alert and oriented -3. Appropriate affect. Intact judgment and insight. - Labs CBC & Chem 7: 10/06/20 06:14 10/06/20 06:14 Labs: Abnormal Lab Results - Last 24 Hours (Table) 10/05/20 10/05/20 10/05/20 Range/Units 06:58 17:02 20:51 WBC (4.50-10.00) X 10*3/uL RDW (11.5-14.5) % Immature Gran # (0.00-0.04) X 10*3/uL Neutrophils # (1.80-7.70) X 10*3/uL Lymphocytes # (0.90-5.00) X 10*3/uL Monocytes # (0.20-1.00) X 10*3/uL Eosinophils # (0.04-0.35) X 10*3/uL Anion Gap 12.60 H (4.00-12.00) mmol/L BUN 36.0 H (9.0-27.0) mg/dL BUN/Creatinine Ratio 32.73 H (12.00-20.00) Ratio Glucose 297 H (70-110) mg/dL POC Glucose (mg/dL) 300 H 289 H (75-99) mg/dL Calcium (8.7-10.3) mg/dL AST 37 H (14-35) U/L ALT 53 H (10-49) U/L Total Protein 6.1 L (6.2-8.2) g/dL Albumin (3.80-4.90) g/dL 10/06/20 10/06/20 10/06/20 Range/Units 06:14 06:14 06:58 WBC 12.84 H (4.50-10.00) X 10*3/uL RDW 11.3 L (11.5-14.5) % Immature Gran # 0.05 H (0.00-0.04) X 10*3/uL Neutrophils # 10.82 H (1.80-7.70) X 10*3/uL Lymphocytes # 0.82 L (0.90-5.00) X 10*3/uL Monocytes # 1.14 H (0.20-1.00) X 10*3/uL Eosinophils # 0 L (0.04-0.35) X 10*3/uL Anion Gap (4.00-12.00) mmol/L BUN 31.0 H (9.0-27.0) mg/dL BUN/Creatinine Ratio 31.00 H (12.00-20.00) Ratio Glucose 262 H (70-110) mg/dL POC Glucose (mg/dL) 252 H (75-99) mg/dL Calcium 8.3 L (8.7-10.3) mg/dL AST (14-35) U/L ALT (10-49) U/L Total Protein 5.6 L (6.2-8.2) g/dL Albumin 3.70 L (3.80-4.90) g/dL Assessment and Plan Plan: Assessment: #1. Acute hypoxic respiratory failure related to acute COVID-19 pneumonia, patient is a candidate for Remdesivir, will be started on 10/04/2020. One dose of convalescent plasma was also ordered, in addition to prophylactic anticoagulation and steroids #2. Mild hyponatremia likely related to hypovolemia, and hyperglycemia, improved #3. History of hypertension #4. Diabetes mellitus type 2 #5. Nonsmoker #6. Elevated transaminases, likely related to viral pneumonia Plan: Breathing easier, cough has improved, Today is day 3 of Remdesivir Weaning FiO2 to maintain O2 saturations at around 90% or better Legionella urine antigen was negative, continue for Continue current dose Decadron, prophylactic Lovenox, continue empiric antibiotics, Legionella urine antigen was negative Continue inhalers Continue following patient's clinical course I performed a history & physical examination of the patient and discussed their management with my nurse practitioner, Amparo Drew. I reviewed the nurse practitioner's note and agree with the documented findings and plan of care. Lung sounds are positive for bibasilar crackles The findings and the impression was discussed with the patient. I attest to the documentation by the nurse practitioner. Time with Patient: Less than 30
--- NOTE | 2020-10-06 13:20 | P.PN ---
Subjective Progress Note Date: 10/06/20 Feels better, still on 5 L of oxygen. No chest pain no abdominal pain, no nausea or vomiting. Objective - Vital Signs Vital signs: Vital Signs Temp 98.5 F 10/06/20 09:33 Pulse 87 10/06/20 09:33 Resp 18 10/06/20 09:33 BP 134/81 10/06/20 09:33 Pulse Ox 93 L 10/06/20 09:33 Intake & Output 10/05/20 10/06/20 10/06/20 18:59 06:59 18:59 Intake Total 1200 300 Output Total 1400 Balance -200 300 Intake: Intake, IV Titration 550 Amount Azithromycin 500 mg In 250 Sodium Chloride 0.9% 250 ml @ 250 mls/hr IVPB Q24H [facility] Rx#:[id number] Remdesivir 100 mg In 250 Sodium Chloride 0.9% 250 ml @ 250 mls/hr IVPB Q24H [facility] Rx#:[id number] cefTRIAXone 1 gm In 50 Sodium Chloride 0.9% 50 ml @ 100 mls/hr IVPB Q24H [facility] Rx#:[id number] Oral 650 300 Output: Urine 1400 Other: Voiding Method Urinal # Voids 4 2 - Exam Constitutional: No acute distress, conversant, pleasant Eyes: Anicteric sclerae, moist conjunctiva ENMT: NC/AT Neck:Supple, FROM, no masses, or JVD Lungs: Clear to auscultation, Clear to percussion, Normal respiratory effort, no accessory muscle use Cardiovascular: Heart regular in rate and rhythm, No murmurs, gallops, or rubs no peripheral edema Abdominal: Soft Nontender, nom distended, no guarding, no rebound or rigidity, Normoactive bowel sounds Skin: Normal temperature, tone, texture, turgor, No induration No subcutaneous nodules, No rash, lesions, No ulcers Extremities:No digital cyanosis No clubbing, Pedal pulses intact and symmetrical Radial pulses intact and symmetrical Normal gait and station, No calf tenderness Psychiatric: Alert and oriented to person, place and time, Appropriate affect Intact judgement Neuro: Muscles Strength 5/5 in all 4 extremities, Sensation to light touch grossly present throughout, Cranial nerves II-XII grossly intact. No focal sensory deficits - Labs CBC & Chem 7: 10/06/20 06:14 10/06/20 06:14 Labs: Abnormal Lab Results - Last 24 Hours (Table) 10/05/20 10/05/20 10/06/20 Range/Units 17:02 20:51 06:14 WBC 12.84 H (4.50-10.00) X 10*3/uL RDW 11.3 L (11.5-14.5) % Immature Gran # 0.05 H (0.00-0.04) X 10*3/uL Neutrophils # 10.82 H (1.80-7.70) X 10*3/uL Lymphocytes # 0.82 L (0.90-5.00) X 10*3/uL Monocytes # 1.14 H (0.20-1.00) X 10*3/uL Eosinophils # 0 L (0.04-0.35) X 10*3/uL BUN (9.0-27.0) mg/dL BUN/Creatinine Ratio (12.00-20.00) Ratio Glucose (70-110) mg/dL POC Glucose (mg/dL) 300 H 289 H (75-99) mg/dL Calcium (8.7-10.3) mg/dL Total Protein (6.2-8.2) g/dL Albumin (3.80-4.90) g/dL 10/06/20 10/06/20 10/06/20 Range/Units 06:14 06:58 11:46 WBC (4.50-10.00) X 10*3/uL RDW (11.5-14.5) % Immature Gran # (0.00-0.04) X 10*3/uL Neutrophils # (1.80-7.70) X 10*3/uL Lymphocytes # (0.90-5.00) X 10*3/uL Monocytes # (0.20-1.00) X 10*3/uL Eosinophils # (0.04-0.35) X 10*3/uL BUN 31.0 H (9.0-27.0) mg/dL BUN/Creatinine Ratio 31.00 H (12.00-20.00) Ratio Glucose 262 H (70-110) mg/dL POC Glucose (mg/dL) 252 H 245 H (75-99) mg/dL Calcium 8.3 L (8.7-10.3) mg/dL Total Protein 5.6 L (6.2-8.2) g/dL Albumin 3.70 L (3.80-4.90) g/dL Assessment and Plan Plan: 1. acute hypoxic respiratory failure secondary to COVID-19: Stable, continue on oxygen, requiring 5 L., Pulmonology consultation. Received plasma, on Remdesivir , monitor 2. covid pneumonitis: Continue oxygen bronchodilators decadrone daily vitamin c , zinc, vitamin D, add Rocephin and Zithromax 3. Essential hypertension : Continue current medications, with lisinopril 4. Diabetes type 2 with hyperglycemia: Continue insulin sliding scale CODE STATUS:full code DVT prophylaxis: lovenox Discussed with: Patient Anticipated discharge place: home in 2-3 days, pending clinical progression
[2020-10-06] MEDS: REMDESIVIR 100 MG in SODIUM CHLORIDE 0.9% 250 ML IVPB SCH (13:43)
[2020-10-06 14:41] VITALS: BMI 30.4
[2020-10-06 16:38] LABS: Glucose,Whole Blood 245 mg/dL (75-99)
[2020-10-06 21:09] LABS: Glucose,Whole Blood 224 mg/dL (75-99)
[2020-10-06] MEDS: SODIUM CHLORIDE 0.9% 1,000 ML IV SCH (21:30)
--- NOTE | 2020-10-07 07:33 | XR ---
EXAMINATION TYPE: XR chest 1V portable DATE OF EXAM: 10/07/2020 CLINICAL HISTORY: Difficulty breathing and cold. Progress study. TECHNIQUE: Single AP portable upright view of the chest is obtained. COMPARISON: Chest x-ray and CTA chest from October 03, 2020 FINDINGS: Background low lung volumes with multifocal mid to lower lung opacities bilaterally redemo nstrated. Cardiac silhouette size is stable and upper limits of normal. Osseous structures are intact . IMPRESSION: Low lung volumes with bilateral multifocal mid to lower lung opacities consistent with co vid-19 infection are redemonstrated. Findings slightly worsened from prior studies.
[2020-10-07 07:36] LABS: Glucose,Whole Blood 243 mg/dL (75-99)
[2020-10-07] MEDS: lisinopriL 20 MG TAB PO SCH (07:45)
[2020-10-07] MEDS: CHOLECALCIFEROL 25 MCG (1000 IU) TABLET PO SCH (07:45)
[2020-10-07] MEDS: ZINC SULFATE 220 MG CAP PO SCH (07:45)
[2020-10-07] MEDS: PANTOPRAZOLE 40 MG TABLET PO SCH (07:45)
[2020-10-07] MEDS: ASCORBIC ACID 500 MG TAB PO SCH (07:45)
[2020-10-07] MEDS: dexAMETHasone 2 MG TAB PO SCH (07:45)
[2020-10-07] MEDS: INSULIN ASPART (NovoLOG) 100 UNIT/ML VIAL SQ SCH ×4 (07:45→20:48)
[2020-10-07] MEDS: ENOXAPARIN 40 MG/0.4 ML SYRINGE SQ SCH (07:46)
[2020-10-07] MEDS: HYDROcodone/APAP 10-325MG 1 EACH TAB PO PRN ×2 (07:49→20:55)
[2020-10-07] MEDS: guaiFENesin-DM 100-10MG/5ML 10 ML CUP PO PRN (07:53)
[2020-10-07 09:48] LABS: Basophils # (A) 0.01 X 10*3/uL (0.00-0.10); Basophils % (A) 0.1 %; Eosinophils # (A) 0.01 X 10*3/uL (0.04-0.35); Eosinophils % (A) 0.1 %; HCT 42.4 % (39.6-50.0); HGB 14.3 g/dL (13.0-17.0); Lymphocytes # (A) 1.05 X 10*3/uL (0.90-5.00); Lymphocytes % (A) 9.8 %; MCH 29.3 pg (27.0-32.0); MCHC 33.7 g/dL (32.0-37.0); MCV 86.9 fL (80.0-97.0); Mean Platelet Volume 10.4 fL (9.5-12.2); Monocytes # (A) 0.88 X 10*3/uL (0.20-1.00); Monocytes % (A) 8.2 %; Neutrophils # (A) 8.73 X 10*3/uL (1.80-7.70); Neutrophils % (A) 81.1 %; Platelet Count 311 X 10*3/uL (140-440); RBC 4.88 X 10*6/uL (4.40-5.60); RDW 11.1 % (11.5-14.5); WBC 10.75 X 10*3/uL (4.50-10.00)
--- NOTE | 2020-10-07 10:43 | P.PN ---
Subjective Progress Note Date: 10/07/20 Feels better, still on 5 L of oxygen. No chest pain no abdominal pain, no nausea or vomiting. has some cough episodes Objective - Vital Signs Vital signs: Vital Signs Temp 98.1 F 10/07/20 09:58 Pulse 85 10/07/20 09:58 Resp 18 10/07/20 09:58 BP 116/79 10/07/20 09:58 Pulse Ox 91 L 10/07/20 09:58 Intake & Output 10/06/20 10/07/20 10/07/20 18:59 06:59 18:59 Intake Total 760 Output Total 600 Balance -600 760 Weight 98.883 kg Intake: Intake, IV Titration 220 Amount Sodium Chloride 0.9% 1, 220 000 ml @ 20 mls/hr IV . Q24H [facility] Rx#:[id number] Oral 540 Output: Urine 600 Other: Voiding Method Urinal Urinal # Voids 2 - Exam Constitutional: No acute distress, conversant, pleasant Eyes: Anicteric sclerae, moist conjunctiva ENMT: NC/AT Neck:Supple, FROM, no masses, or JVD Lungs: Clear to auscultation, Clear to percussion, Normal respiratory effort, no accessory muscle use Cardiovascular: Heart regular in rate and rhythm, No murmurs, gallops, or rubs no peripheral edema Abdominal: Soft Nontender, non distended Skin: Normal temperature, tone, texture Extremities:No digital cyanosis No clubbing, Pedal pulses intact and symmetrical Radial pulses intact and symmetrical Normal gait and station, No calf tenderness Psychiatric: Alert and oriented to person, place and time, Appropriate affect Intact judgement Neuro: Muscles Strength 5/5 in all 4 extremities, Sensation to light touch grossly present throughout, Cranial nerves II-XII grossly intact. No focal sensory deficits - Labs CBC & Chem 7: 10/07/20 05:38 10/06/20 06:14 Labs: Abnormal Lab Results - Last 24 Hours (Table) 10/06/20 10/06/20 10/06/20 Range/Units 06:14 11:46 16:36 WBC (4.50-10.00) X 10*3/uL RDW (11.5-14.5) % Immature Gran # (0.00-0.04) X 10*3/uL Neutrophils # (1.80-7.70) X 10*3/uL Eosinophils # (0.04-0.35) X 10*3/uL BUN 31.0 H (9.0-27.0) mg/dL BUN/Creatinine Ratio 31.00 H (12.00-20.00) Ratio Glucose 262 H (70-110) mg/dL POC Glucose (mg/dL) 245 H 245 H (75-99) mg/dL Calcium 8.3 L (8.7-10.3) mg/dL Total Protein 5.6 L (6.2-8.2) g/dL Albumin 3.70 L (3.80-4.90) g/dL 10/06/20 10/07/20 10/07/20 Range/Units 21:08 05:38 07:34 WBC 10.75 H (4.50-10.00) X 10*3/uL RDW 11.1 L (11.5-14.5) % Immature Gran # 0.07 H (0.00-0.04) X 10*3/uL Neutrophils # 8.73 H (1.80-7.70) X 10*3/uL Eosinophils # 0.01 L (0.04-0.35) X 10*3/uL BUN (9.0-27.0) mg/dL BUN/Creatinine Ratio (12.00-20.00) Ratio Glucose (70-110) mg/dL POC Glucose (mg/dL) 224 H 243 H (75-99) mg/dL Calcium (8.7-10.3) mg/dL Total Protein (6.2-8.2) g/dL Albumin (3.80-4.90) g/dL Assessment and Plan Plan: 1. acute hypoxic respiratory failure secondary to COVID-19: Stable, continue on oxygen, requiring 5 L., Pulmonology consultation, input appreciated. Received plasma, on Remdesivir , monitor add albuterol 2. covid pneumonitis: Continue oxygen bronchodilators decadrone daily vitamin c , zinc, vitamin D, add Rocephin and Zithromax 3. Essential hypertension : Continue current medications, with lisinopril 4. Diabetes type 2 with hyperglycemia: Continue insulin sliding scale CODE STATUS:full code DVT prophylaxis: lovenox Discussed with: Patient Anticipated discharge place: home in 2-3 days, pending clinical progression
[2020-10-07] MEDS: AZITHROMYCIN 500 MG in SODIUM CHLORIDE 0.9% 250 ML IVPB SCH (10:57)
[2020-10-07 11:21] LABS: Glucose,Whole Blood 264 mg/dL (75-99)
--- NOTE | 2020-10-07 13:04 | P.PN ---
Subjective Progress Note Date: 10/07/20 Principal diagnosis: COVID-19 pneumonia This is a 59-year-old white male patient with past medical history of hypertension, diabetes mellitus, lifetime nonsmoker, who presented to the emergency department yesterday on 10/03/2020 for evaluation of worsening cough, and shortness of breath. He diagnosed with COVID-19, his chest x-ray in the emergency department showed no active cardiopulmonary disease, and minimal fibrotic changes. His initial onset of symptoms was a week ago and started with the cough, fever and chills. He admits to having one episode of diarrhea, he states that the fever chills resolved, however his cough progressed, and he feels more short of breath with any exertion. His lab work was reviewed showing normal white count of 10.5, hemoglobin was 17, he had mild neutrophilia with the Detrol count of 9.1, and lymphopenia with lymphocyte count of 0.5, d-dimer was negative at 0.50, electrolytes were unremarkable, CO2 is 19, B1 is 23 creatinine was 0.95. His glucose is quite elevated at 311, patient was started on Decadron in the emergency department, his LDH is 248, and CRP was 13.5, AST and ALT mildly elevated at 37 and 57 respectively, alkaline phosphatase is normal at 72. CTA chest showed no evidence of pulmonary embolism, and showed posterior patchy pulmonary interstitial pneumonia. Patient currently on Lovenox 40 mg, he was empirically started on azithromycin and Rocephin, pro-calcitonin level is pending, and he is on oral Decadron 6 mg daily On 10/05/2020 patient seen in follow-up on medical surgical floor. Is having coughing spells, and is unable to take deep breaths, he is got shallow respirations, he is currently on 5 L of oxygen, pulse ox was around 90%. He is not able to do the incentive spirometer very well because it sends them into a coughing jag. Did have low-grade fevers early this morning with a temp of 100F . No complaints of chest discomfort, lung sounds reveal diffuse coarse crackles. Patient is on day 2 of Remdesivir, he received 1 unit of convalescent plasma. He also continues on azithromycin and Rocephin, dexamethasone 6 program daily, and prophylactic Lovenox. Today's labs have been reviewed showing white blood cell count 18.42, hemoglobin is 14.7, electrolytes are within normal limits, B1 is 36 and creatinine is 1.1. AST and ALT are relatively stable at 37 and 53 respectively, pro-calcitonin level was borderline at 0.47, and possibly a bacterial infection is also being considered patient is covered with Rocephin and Zithromax On 10/06/2030 patient seen in follow-up medical surgical floor, he is resting comfortably in bed, he is in no acute distress, his pulse ox on 5 L is 93%, he states his cough is improving, but still unable to take deep breast because of coughing spells, he states there is less burning in his chest with coughing episodes, he is on day 3 of Remdesivir treatment, he status post transfusion with 1 unit of convalescent plasma, he remains on multivitamins, he is on prophylactic dose Lovenox, and Decadron 6 mg daily, Legionella urine antigen came back negative, patient is on azithromycin and Rocephin, today's labs have been reviewed showing white blood cell count of 12.8, which is improving, electrolytes are within normal limits, BUN of 30, creatinine is 1. He's had no acute events overnight, his afebrile. Breathing more comfortably, he is working on incentive spirometer. On the 10/07/2020 patient seen in follow-up on medical surgical floor. Patient is on Remdesivir therefore, his oxygenation has increased, patient is currently requiring 8 L of oxygen, however clinically he looks quite comfortable, appears to be in no acute distress, his pulse ox on 8 L of oxygen is 91%, no fever, his vital signs have been stable, no chest discomfort, occasional cough, nonproductive. His chest x-ray today shows a low lung volumes with bilateral multifocal mid to lower lung opacities consistent with COVID-19 infection, may be slightly worsened or stable from prior studies. Today's labs have been reviewed, his CBC results are available, the rest of his blood work is still pending, white blood cell count is 10.7, hemoglobin is 14.3, his lymphocyte co unt is 1.05. No nausea vomiting diarrhea, he is tolerating oral intake, he continues on azithromycin and Rocephin for possibility of bacterial infection. Legionella urine antigen came back negative Objective - Vital Signs Vital signs: Vital Signs Temp 98.1 F 10/07/20 09:58 Pulse 85 10/07/20 09:58 Resp 18 10/07/20 09:58 BP 116/79 10/07/20 09:58 Pulse Ox 91 L 10/07/20 09:58 Intake & Output 10/06/20 10/07/20 10/07/20 18:59 06:59 18:59 Intake Total 760 Output Total 600 Balance -600 760 Weight 98.883 kg Intake: Intake, IV Titration 220 Amount Sodium Chloride 0.9% 1, 220 000 ml @ 20 mls/hr IV . Q24H [facility] Rx#:[id number] Oral 540 Output: Urine 600 Other: Voiding Method Urinal Urinal # Voids 2 - Exam GENERAL EXAM: Alert, very pleasant 59-year-old white male on 8 l of oxygen, p ulse ox is 91% comfortable in no apparent distress. HEAD: Normocephalic/atraumatic. EYES: Normal reaction of pupils, equal size. Conjunctiva pink, sclera white. NOSE: Clear with pink turbinates. THROAT: No erythema or exudates. NECK: No masses, no JVD, no thyroid enlargement, no adenopathy. CHEST: No chest wall deformity. Symmetrical expansion. LUNGS: Equal air entry with no crackles, wheeze, rhonchi or dullness. CVS: Regular rate and rhythm, normal S1 and S2, no gallops, no murmurs, no rubs ABDOMEN: Soft, nontender. No hepatosplenomegaly, normal bowel sounds, no guarding or rigidity. EXTREMITIES: No clubbing, no edema, no cyanosis, 2+ pulses and upper and lower extremities. MUSCULOSKELETAL: Muscle strength and tone normal. SPINE: No scoliosis or deformity SKIN: No rashes CENTRAL NERVOUS SYSTEM: Alert and oriented -3. No focal deficits, tone is normal in all 4 extremities. PSYCHIATRIC: Alert and oriented -3. Appropriate affect. Intact judgment and insight. - Labs CBC & Chem 7: 10/07/20 05:38 10/06/20 06:14 Labs: Abnormal Lab Results - Last 24 Hours (Table) 10/06/20 10/06/20 10/07/20 Range/Units 16:36 21:08 05:38 WBC 10.75 H (4.50-10.00) X 10*3/uL RDW 11.1 L (11.5-14.5) % Immature Gran # 0.07 H (0.00-0.04) X 10*3/uL Neutrophils # 8.73 H (1.80-7.70) X 10*3/uL Eosinophils # 0.01 L (0.04-0.35) X 10*3/uL POC Glucose (mg/dL) 245 H 224 H (75-99) mg/dL 10/07/20 10/07/20 Range/Units 07:34 11:20 WBC (4.50-10.00) X 10*3/uL RDW (11.5-14.5) % Immature Gran # (0.00-0.04) X 10*3/uL Neutrophils # (1.80-7.70) X 10*3/uL Eosinophils # (0.04-0.35) X 10*3/uL POC Glucose (mg/dL) 243 H 264 H (75-99) mg/dL Assessment and Plan Plan: Assessment: #1. Acute hypoxic respiratory failure related to acute COVID-19 pneumonia, patient is a candidate for Remdesivir, will be started on 10/04/2020. One dose of convalescent plasma was also ordered, in addition to prophylactic ant icoagulation and steroids #2. Mild hyponatremia likely related to hypovolemia, and hyperglycemia, improved #3. History of hypertension #4. Diabetes mellitus type 2 #5. Nonsmoker #6. Elevated transaminases, likely related to viral pneumonia Plan: Patient is requiring higher amount of oxygen But no increased work of breathing noted No fever or chills Continue current dose Decadron and Lovenox Continue inhalers Today's labs have been noted Awaiting results of the inflammatory markers, which were not significantly elevated on his previous labs We'll continue to follow his clinical course. Provide incentive spirometer and instruct on the use I performed a history & physical examination of the patient and discussed their management with my nurse practitioner, Amparo Drew. I reviewed the nurse practitioner's note and agree with the documented findings and plan of care. Lung sounds are positive for bibasilar crackles The findings and the impression was discussed with the patient. I attest to the documentation by the nurse practitioner. Time with Patient: Less than 30
[2020-10-07] MEDS: REMDESIVIR 100 MG in SODIUM CHLORIDE 0.9% 250 ML IVPB SCH (13:33)
[2020-10-07 16:47] LABS: Glucose,Whole Blood 261 mg/dL (75-99)
[2020-10-07 20:25] LABS: African American GFR (CKD) 109.5 (60.0-200.0); Albumin 3.8 g/dL (3.80-4.90); Albumin/Globulin Ratio 1.65 (1.60-3.17); Anion Gap 11.9 mmol/L (4.00-12.00); Calcium 8.5 mg/dL (8.7-10.3); Carbon Dioxide 22.1 mmol/L (21.6-31.8); Globulin 2.3 g/dL (1.6-3.3); Non-African American GFR(CKD) 94.5 (60.0-200.0); Potassium 4.8 mmol/L (3.5-5.5); Total Bilirubin 0.8 mg/dL (0.3-1.2); Total Protein 6.1 g/dL (6.2-8.2)
[2020-10-07 20:41] LABS: Glucose,Whole Blood 263 mg/dL (75-99)
[2020-10-07] MEDS: SODIUM CHLORIDE 0.9% 1,000 ML IV SCH (20:48)
[2020-10-08 07:20] LABS: Glucose,Whole Blood 213 mg/dL (75-99)
[2020-10-08] MEDS: PANTOPRAZOLE 40 MG TABLET PO SCH (07:42)
[2020-10-08] MEDS: CHOLECALCIFEROL 25 MCG (1000 IU) TABLET PO SCH (07:42)
[2020-10-08] MEDS: dexAMETHasone 2 MG TAB PO SCH (07:42)
[2020-10-08] MEDS: INSULIN ASPART (NovoLOG) 100 UNIT/ML VIAL SQ SCH ×4 (07:42→20:54)
[2020-10-08] MEDS: ENOXAPARIN 40 MG/0.4 ML SYRINGE SQ SCH (07:42)
[2020-10-08] MEDS: ASCORBIC ACID 500 MG TAB PO SCH (07:42)
[2020-10-08] MEDS: lisinopriL 20 MG TAB PO SCH (07:43)
[2020-10-08] MEDS: ZINC SULFATE 220 MG CAP PO SCH (07:43)
[2020-10-08] MEDS: HYDROcodone/APAP 10-325MG 1 EACH TAB PO PRN ×2 (07:46→20:58)
[2020-10-08] MEDS: ALBUTEROL HFA INHALER INHALATION PRN ×2 (08:27→11:20)
--- NOTE | 2020-10-08 09:02 | P.PN ---
Subjective Progress Note Date: 10/08/20 Feels better, he was up to 7-8 L yesterday but currently down to 5 L of oxygen. No chest pain no abdominal pain, no nausea or vomiting. He has been using incentive spirometry. Objective - Vital Signs Vital signs: Vital Signs Temp 98.7 F 10/08/20 06:39 Pulse 82 10/08/20 06:39 Resp 22 10/08/20 06:39 BP 112/68 10/08/20 06:39 Pulse Ox 85 L 10/08/20 06:39 Intake & Output 10/07/20 10/08/20 10/08/20 18:59 06:59 18:59 Intake Total 540 180 Output Total 500 Balance 40 180 Intake: Intake, IV Titration 540 Amount Azithromycin 500 mg In 240 Sodium Chloride 0.9% 250 ml @ 250 mls/hr IVPB Q24H [facility] Rx#:[id number] Remdesivir 100 mg In 250 Sodium Chloride 0.9% 250 ml @ 250 mls/hr IVPB Q24H [facility] Rx#:[id number] cefTRIAXone 1 gm In 50 Sodium Chloride 0.9% 50 ml @ 100 mls/hr IVPB Q24H [facility] Rx#:[id number] Oral 180 Output: Urine 500 Other: Voiding Method Urinal Urinal # Voids 3 - Exam Constitutional: No acute distress, conversant, pleasant Eyes: Anicteric sclerae, moist conjunctiva ENMT: NC/AT Neck:Supple Lungs: Clear to auscultation, Clear to percussion, Normal respiratory effort, no accessory muscle use Cardiovascular: Heart regular in rate and rhythm, No murmurs, gallops, or rubs no peripheral edema Abdominal: Soft Nontender, non distended Skin: Normal temperature, tone, texture Extremities:No digital cyanosis No clubbing, Pedal pulses intact and symmetrical Radial pulses intact and symmetrical Normal gait and station, No calf tenderness Psychiatric: Alert and oriented to person, place and time, Appropriate affect Intact judgement Neuro: Muscles Strength 5/5 in all 4 extremities, Sensation to light touch gross ly present throughout, Cranial nerves II-XII grossly intact. No focal sensory deficits - Labs CBC & Chem 7: 10/07/20 05:38 10/07/20 05:38 Labs: Abnormal Lab Results - Last 24 Hours (Table) 10/07/20 10/07/20 10/07/20 Range/Units 05:38 05:38 11:20 WBC 10.75 H (4.50-10.00) X 10*3/uL RDW 11.1 L (11.5-14.5) % Immature Gran # 0.07 H (0.00-0.04) X 10*3/uL Neutrophils # 8.73 H (1.80-7.70) X 10*3/uL Eosinophils # 0.01 L (0.04-0.35) X 10*3/uL BUN/Creatinine Ratio 30.00 H (12.00-20.00) Ratio Glucose 254 H (70-110) mg/dL POC Glucose (mg/dL) 264 H (75-99) mg/dL Calcium 8.5 L (8.7-10.3) mg/dL Total Protein 6.1 L (6.2-8.2) g/dL 10/07/20 10/07/20 10/08/20 Range/Units 16:45 20:40 07:18 WBC (4.50-10.00) X 10*3/uL RDW (11.5-14.5) % Immature Gran # (0.00-0.04) X 10*3/uL Neutrophils # (1.80-7.70) X 10*3/uL Eosinophils # (0.04-0.35) X 10*3/uL BUN/Creatinine Ratio (12.00-20.00) Ratio Glucose (70-110) mg/dL POC Glucose (mg/dL) 261 H 263 H 213 H (75-99) mg/dL Calcium (8.7-10.3) mg/dL Total Protein (6.2-8.2) g/dL Assessment and Plan Plan: 1. acute hypoxic respiratory failure secondary to COVID-19: Stable, continue on oxygen, requiring 5 L., Pulmonology consultation, input appreciated. Received plasma, completed Remdesivir , continue albuterol 2. covid pneumonitis: Continue oxygen bronchodilators decadrone daily vitamin c , zinc, vitamin D, add Rocephin and Zithromax 3. Essential hypertension : Continue current medications, with lisinopril 4. Diabetes type 2 with hyperglycemia: Continue insulin sliding scale CODE STATUS:full code DVT prophylaxis: lovenox Discussed with: Patient Anticipated discharge place: home in 2-3 days, pending clinical progression , gradual improvement.
[2020-10-08 10:20] LABS: Basophils # (A) 0.01 X 10*3/uL (0.00-0.10); Basophils % (A) 0.1 %; Eosinophils # (A) 0.02 X 10*3/uL (0.04-0.35); Eosinophils % (A) 0.2 %; HGB 14.7 g/dL (13.0-17.0); Lymphocytes # (A) 1.04 X 10*3/uL (0.90-5.00); Lymphocytes % (A) 8.9 %; MCHC 33.4 g/dL (32.0-37.0); MCV 86.8 fL (80.0-97.0); Mean Platelet Volume 10.4 fL (9.5-12.2); Monocytes # (A) 0.89 X 10*3/uL (0.20-1.00); Monocytes % (A) 7.6 %; Neutrophils # (A) 9.69 X 10*3/uL (1.80-7.70); Neutrophils % (A) 82.5 %; Platelet Count 344 X 10*3/uL (140-440); RBC 5.07 X 10*6/uL (4.40-5.60); RDW 11.1 % (11.5-14.5); WBC 11.73 X 10*3/uL (4.50-10.00)
[2020-10-08] MEDS: AZITHROMYCIN 500 MG in SODIUM CHLORIDE 0.9% 250 ML IVPB SCH (11:20)
[2020-10-08 12:04] LABS: Glucose,Whole Blood 268 mg/dL (75-99)
[2020-10-08] MEDS: guaiFENesin-DM 100-10MG/5ML 10 ML CUP PO SCH ×2 (14:43→20:54)
[2020-10-08] MEDS: REMDESIVIR 100 MG in SODIUM CHLORIDE 0.9% 250 ML IVPB SCH (14:43)
[2020-10-08 14:55] LABS: African American GFR (CKD) 96.4 (60.0-200.0); Albumin 3.7 g/dL (3.80-4.90); Albumin/Globulin Ratio 1.85 (1.60-3.17); Anion Gap 9.6 mmol/L (4.00-12.00); C Reactive Protein 1.7 mg/dL (0.0-0.8); Calcium 8.5 mg/dL (8.7-10.3); Carbon Dioxide 24.4 mmol/L (21.6-31.8); Non-African American GFR(CKD) 83.2 (60.0-200.0); Potassium 4.7 mmol/L (3.5-5.5); Total Bilirubin 0.9 mg/dL (0.2-1.2); Total Protein 5.7 g/dL (6.2-8.2)
--- NOTE | 2020-10-08 15:30 | P.PN ---
Subjective Progress Note Date: 10/08/20 Principal diagnosis: COVID-19 pneumonia This is a 59-year-old white male patient with past medical history of hypertension, diabetes mellitus, lifetime nonsmoker, who presented to the emergency department yesterday on 10/03/2020 for evaluation of worsening cough, and shortness of breath. He diagnosed with COVID-19, his chest x-ray in the emergency department showed no active cardiopulmonary disease, and minimal fibrotic changes. His initial onset of symptoms was a week ago and started with the cough, fever and chills. He admits to having one episode of diarrhea, he states that the fever chills resolved, however his cough progressed, and he feels more short of breath with any exertion. His lab work was reviewed showing normal white count of 10.5, hemoglobin was 17, he had mild neutrophilia with the Detrol count of 9.1, and lymphopenia with lymphocyte count of 0.5, d-dimer was negative at 0.50, electrolytes were unremarkable, CO2 is 19, B1 is 23 creatinine was 0.95. His glucose is quite elevated at 311, patient was started on Decadron in the emergency department, his LDH is 248, and CRP was 13.5, AST and ALT mildly elevated at 37 and 57 respectively, alkaline phosphatase is normal at 72. CTA chest showed no evidence of pulmonary embolism, and showed posterior patchy pulmonary interstitial pneumonia. Patient currently on Lovenox 40 mg, he was empirically started on azithromycin and Rocephin, pro-calcitonin level is pending, and he is on oral Decadron 6 mg daily On 10/05/2020 patient seen in follow-up on medical surgical floor. Is having coughing spells, and is unable to take deep breaths, he is got shallow respirations, he is currently on 5 L of oxygen, pulse ox was around 90%. He is not able to do the incentive spirometer very well because it sends them into a coughing jag. Did have low-grade fevers early this morning with a temp of 100F . No complaints of chest discomfort, lung sounds reveal diffuse coarse crackles. Patient is on day 2 of Remdesivir, he received 1 unit of convalescent plasma. He also continues on azithromycin and Rocephin, dexamethasone 6 program daily, and prophylactic Lovenox. Today's labs have been reviewed showing white blood cell count 18.42, hemoglobin is 14.7, electrolytes are within normal limits, B1 is 36 and creatinine is 1.1. AST and ALT are relatively stable at 37 and 53 respectively, pro-calcitonin level was borderline at 0.47, and possibly a bacterial infection is also being considered patient is covered with Rocephin and Zithromax On 10/06/2030 patient seen in follow-up medical surgical floor, he is resting comfortably in bed, he is in no acute distress, his pulse ox on 5 L is 93%, he states his cough is improving, but still unable to take deep breast because of coughing spells, he states there is less burning in his chest with coughing episodes, he is on day 3 of Remdesivir treatment, he status post transfusion with 1 unit of convalescent plasma, he remains on multivitamins, he is on prophylactic dose Lovenox, and Decadron 6 mg daily, Legionella urine antigen came back negative, patient is on azithromycin and Rocephin, today's labs have been reviewed showing white blood cell count of 12.8, which is improving, electrolytes are within normal limits, BUN of 30, creatinine is 1. He's had no acute events overnight, his afebrile. Breathing more comfortably, he is working on incentive spirometer. On the 10/07/2020 patient seen in follow-up on medical surgical floor. Patient is on Remdesivir therefore, his oxygenation has increased, patient is currently requiring 8 L of oxygen, however clinically he looks quite comfortable, appears to be in no acute distress, his pulse ox on 8 L of oxygen is 91%, no fever, his vital signs have been stable, no chest discomfort, occasional cough, nonproductive. His chest x-ray today shows a low lung volumes with bilateral multifocal mid to lower lung opacities consistent with COVID-19 infection, may be slightly worsened or stable from prior studies. Today's labs have been reviewed, his CBC results are available, the rest of his blood work is still pending, white blood cell count is 10.7, hemoglobin is 14.3, his lymphocyte co unt is 1.05. No nausea vomiting diarrhea, he is tolerating oral intake, he continues on azithromycin and Rocephin for possibility of bacterial infection. Legionella urine antigen came back negative On 10/08/2020 patient seen in follow-up on medical surgical floor. Today is his last day of Remdesivir, he remains on subpleural oxygen currently on 5 L, his pulse ox is 89%, he is breathing comfortably, he is up in the chair today, and he states he is actually feeling good sitting up in the chair, appears to be in no acute distress, his coughing is better, and is having less coughing spells. he had no fever or chills, vital signs have been stable, he remains on Decadron at 6 mg daily, and prophylactic Lovenox, in addition he remains on azithromycin and Rocephin. Today's labs have been reviewed, he is d-dimer 0.39, electrolytes and renal profile are within normal limits. No nausea vomiting diarrhea, he is tolerating oral intake. Objective - Vital Signs Vital signs: Vital Signs Temp 98.0 F 10/08/20 14:21 Pulse 79 10/08/20 14:21 Resp 17 10/08/20 14:21 BP 121/71 10/08/20 14:21 Pulse Ox 90 L 10/08/20 14:21 Intake & Output 10/07/20 10/08/20 10/08/20 18:59 06:59 18:59 Intake Total 540 180 Output Total 500 Balance 40 180 Intake: Intake, IV Titration 540 Amount Azithromycin 500 mg In 240 Sodium Chloride 0.9% 250 ml @ 250 mls/hr IVPB Q24H [facility] Rx#:[id number] Remdesivir 100 mg In 250 Sodium Chloride 0.9% 250 ml @ 250 mls/hr IVPB Q24H [facility] Rx#:[id number] cefTRIAXone 1 gm In 50 Sodium Chloride 0.9% 50 ml @ 100 mls/hr IVPB Q24H [facility] Rx#:[id number] Oral 180 Output: Urine 500 Other: Voiding Method Urinal Urinal Urinal # Voids 3 - Exam GENERAL EXAM: Alert, very pleasant 59-year-old white male on 5 l of oxygen, pulse ox is 91% comfortable in no apparent distress. HEAD: Normocephalic/atraumatic. EYES: Normal reaction of pupils, equal size. Conjunctiva pink, sclera white. NOSE: Clear with pink turbinates. THROAT: No erythema or exudates. NECK: No masses, no JVD, no thyroid enlargement, no adenopathy. CHEST: No chest wall deformity. Symmetrical expansion. LUNGS: Equal air entry with no crackles, wheeze, rhonchi or dullness. CVS: Regular rate and rhythm, normal S1 and S2, no gallops, no murmurs, no rubs ABDOMEN: Soft, nontender. No hepatosplenomegaly, normal bowel sounds, no guarding or rigidity. EXTREMITIES: No clubbing, no edema, no cyanosis, 2+ pulses and upper and lower extremities. MUSCULOSKELETAL: Muscle strength and tone normal. SPINE: No scoliosis or deformity SKIN: No rashes CENTRAL NERVOUS SYSTEM: Alert and oriented -3. No focal deficits, tone is normal in all 4 extremities. PSYCHIATRIC: Alert and oriented -3. Appropriate affect. Intact judgment and insight. - Labs CBC & Chem 7: 10/08/20 05:10/08/20 05: Labs: Abnormal Lab Results - Last 24 Hours (Table) 10/07/20 10/07/20 10/07/20 Range/Units 05:38 16:45 20:40 WBC (4.50-10.00) X 10*3/uL RDW (11.5-14.5) % Immature Gran # (0.00-0.04) X 10*3/uL Neutrophils # (1.80-7.70) X 10*3/uL Eosinophils # (0.04-0.35) X 10*3/uL BUN/Creatinine Ratio 30.00 H (12.00-20.00) Ratio Glucose 254 H (70-110) mg/dL POC Glucose (mg/dL) 261 H 263 H (75-99) mg/dL Calcium 8.5 L (8.7-10.3) mg/dL Lactate Dehydrogenase (120-246) U/L C-Reactive Protein (0.0-0.8) mg/dL Total Protein 6.1 L (6.2-8.2) g/dL Albumin (3.80-4.90) g/dL 10/08/20 10/08/20 10/08/20 Range/Units 05: 05: 07:18 WBC 11.73 H (4.50-10.00) X 10*3/uL RDW 11.1 L (11.5-14.5) % Immature Gran # 0.08 H (0.00-0.04) X 10*3/uL Neutrophils # 9.69 H (1.80-7.70) X 10*3/uL Eosinophils # 0.02 L (0.04-0.35) X 10*3/uL BUN/Creatinine Ratio 25.00 H (12.00-20.00) Ratio Glucose 212 H (70-110) mg/dL POC Glucose (mg/dL) 213 H (75-99) mg/dL Calcium 8.5 L (8.7-10.3) mg/dL Lactate Dehydrogenase 306 H (120-246) U/L C-Reactive Protein 1.7 H (0.0-0.8) mg/dL Total Protein 5.7 L (6.2-8.2) g/dL Albumin 3.70 L (3.80-4.90) g/dL 10/08/20 Range/Units 12:00 WBC (4.50-10.00) X 10*3/uL RDW (11.5-14.5) % Immature Gran # (0.00-0.04) X 10*3/uL Neutrophils # (1.80-7.70) X 10*3/uL Eosinophils # (0.04-0.35) X 10*3/uL BUN/Creatinine Ratio (12.00-20.00) Ratio Glucose (70-110) mg/dL POC Glucose (mg/dL) 268 H (75-99) mg/dL Calcium (8.7-10.3) mg/dL Lactate Dehydrogenase (120-246) U/L C-Reactive Protein (0.0-0.8) mg/dL Total Protein (6.2-8.2) g/dL Albumin (3.80-4.90) g/dL Assessment and Plan Plan: Assessment: #1. Acute hypoxic respiratory failure related to acute COVID-19 pneumonia, patient is a candidate for Remdesivir, will be started on 10/04/2020. One dose of convalescent plasma was also ordered, in addition to prophylactic anticoagulation and steroids #2. Mild hyponatremia likely related to hypovolemia, and hyperglycemia, improved #3. History of hypertension #4. Diabetes mellitus type 2 #5. Nonsmoker #6. Elevated transaminases, likely related to viral pneumonia Plan: Continue weaning FiO2 to keep O2 sats is at 89% or above Currently at 5 L and breathing comfortably No fever or chills Today's labs have been noted We'll continue to follow his clinical course. Provide incentive spirometer and instruct on the use We'll continue to follow Finished Remdesivir course today, continue Decadron and Lovenox I performed a history & physical examination of the patient and discussed their management with my nurse practitioner, Amparo Drew. I reviewed the nurse practitioner's note and agree with the documented findings and plan of care. Lung sounds are positive for bibasilar crackles The findings and the impression was discussed with the patient. I attest to the documentation by the nurse practitioner. Time with Patient: Less than 30
[2020-10-08 17:19] LABS: Glucose,Whole Blood 306 mg/dL (75-99)
[2020-10-08] MEDS: SODIUM CHLORIDE 0.9% 1,000 ML IV SCH (20:38)
[2020-10-08 20:41] LABS: Glucose,Whole Blood 223 mg/dL (75-99)
[2020-10-09] MEDS: guaiFENesin-DM 100-10MG/5ML 10 ML CUP PO SCH ×4 (01:12→17:59)
[2020-10-09 07:14] LABS: Glucose,Whole Blood 203 mg/dL (75-99)
[2020-10-09] MEDS: ALBUTEROL HFA INHALER INHALATION PRN ×3 (08:10→20:11)
[2020-10-09] MEDS: INSULIN ASPART (NovoLOG) 100 UNIT/ML VIAL SQ SCH ×4 (08:29→21:40)
[2020-10-09] MEDS: CHOLECALCIFEROL 25 MCG (1000 IU) TABLET PO SCH (08:30)
[2020-10-09] MEDS: PANTOPRAZOLE 40 MG TABLET PO SCH (08:30)
[2020-10-09] MEDS: dexAMETHasone 2 MG TAB PO SCH (08:30)
[2020-10-09] MEDS: ENOXAPARIN 40 MG/0.4 ML SYRINGE SQ SCH (08:30)
[2020-10-09] MEDS: ASCORBIC ACID 500 MG TAB PO SCH (08:30)
[2020-10-09] MEDS: ZINC SULFATE 220 MG CAP PO SCH (08:30)
[2020-10-09] MEDS: lisinopriL 20 MG TAB PO SCH (08:30)
[2020-10-09] MEDS: HYDROcodone/APAP 10-325MG 1 EACH TAB PO PRN ×2 (08:36→18:19)
--- NOTE | 2020-10-09 09:12 | P.PN ---
Subjective Progress Note Date: 10/09/20 Feels better, is on 5-6 L of oxygen. No chest pain no abdominal pain, no nausea or vomiting. He has been using incentive spirometry. No dizziness Objective - Vital Signs Vital signs: Vital Signs Temp 98.6 F 10/09/20 06:19 Pulse 81 10/09/20 06:19 Resp 19 10/09/20 06:19 BP 114/71 10/09/20 06:19 Pulse Ox 91 L 10/09/20 06:19 Intake & Output 10/08/20 10/09/20 10/09/20 18:59 06:59 18:59 Intake Total 730 Output Total 1250 Balance 730 -1250 Intake: Intake, IV Titration 550 Amount Azithromycin 500 mg In 250 Sodium Chloride 0.9% 250 ml @ 250 mls/hr IVPB Q24H [facility] Rx#:[id number] Remdesivir 100 mg In 250 Sodium Chloride 0.9% 250 ml @ 250 mls/hr IVPB Q24H [facility] Rx#:[id number] cefTRIAXone 1 gm In 50 Sodium Chloride 0.9% 50 ml @ 100 mls/hr IVPB Q24H [facility] Rx#:[id number] Oral 180 Output: Urine 1250 Other: Voiding Method Urinal Urinal - Exam Constitutional: No acute distress, conversant, pleasant Eyes: Anicteric sclerae ENMT: NC/AT Neck:Supple Lungs: Clear to auscultation, Clear to percussion, Normal respiratory effort, no accessory muscle use Cardiovascular: Heart regular in rate and rhythm, No murmurs, gallops, or rubs no peripheral edema Abdominal: Soft Nontender, non distended Skin: Normal temperature, tone, texture Extremities:No digital cyanosis No clubbing, Pedal pulses intact and symmetrical Radial pulses intact and symmetrical Normal gait and station Psychiatric: Alert and oriented to person, place and time Neuro: Muscles Strength 5/5 in all 4 extremities, Sensation to light touch grossly present throughout, Cranial nerves II-XII grossly intact. No focal sensory deficits - Labs CBC & Chem 7: 10/08/20 05:29 10/08/20 05:29 Labs: Abnormal Lab Results - Last 24 Hours (Table) 10/08/20 10/08/20 10/08/20 Range/Units 05: 05: 12:00 WBC 11.73 H (4.50-10.00) X 10*3/uL RDW 11.1 L (11.5-14.5) % Immature Gran # 0.08 H (0.00-0.04) X 10*3/uL Neutrophils # 9.69 H (1.80-7.70) X 10*3/uL Eosinophils # 0.02 L (0.04-0.35) X 10*3/uL BUN/Creatinine Ratio 25.00 H (12.00-20.00) Ratio Glucose 212 H (70-110) mg/dL POC Glucose (mg/dL) 268 H (75-99) mg/dL Calcium 8.5 L (8.7-10.3) mg/dL Lactate Dehydrogenase 306 H (120-246) U/L C-Reactive Protein 1.7 H (0.0-0.8) mg/dL Total Protein 5.7 L (6.2-8.2) g/dL Albumin 3.70 L (3.80-4.90) g/dL 10/08/20 10/08/20 10/09/20 Range/Units 17:17 20:40 07:12 WBC (4.50-10.00) X 10*3/uL RDW (11.5-14.5) % Immature Gran # (0.00-0.04) X 10*3/uL Neutrophils # (1.80-7.70) X 10*3/uL Eosinophils # (0.04-0.35) X 10*3/uL BUN/Creatinine Ratio (12.00-20.00) Ratio Glucose (70-110) mg/dL POC Glucose (mg/dL) 306 H 223 H 203 H (75-99) mg/dL Calcium (8.7-10.3) mg/dL Lactate Dehydrogenase (120-246) U/L C-Reactive Protein (0.0-0.8) mg/dL Total Protein (6.2-8.2) g/dL Albumin (3.80-4.90) g/dL Assessment and Plan Plan: 1. acute hypoxic respiratory failure secondary to COVID-19: Stable, continue on oxygen, requiring 5-6 L., Pulmonology consultation, input appreciated. Received plasma, completed Remdesivir , continue albuterol 2. covid pneumonitis: Continue oxygen bronchodilators decadrone daily vitamin c , zinc, vitamin D, add Rocephin and Zithromax 3. Essential hypertension : Continue current medications, with lisinopril 4. Diabetes type 2 with hyperglycemia: Continue insulin sliding scale CODE STATUS:full code DVT prophylaxis: lovenox Discussed with: Patient Anticipated discharge place: home in 2-3 days, pending clinical progression
[2020-10-09 09:18] LABS: Basophils # (A) 0.02 X 10*3/uL (0.00-0.10); Basophils % (A) 0.2 %; Eosinophils # (A) 0.07 X 10*3/uL (0.04-0.35); Eosinophils % (A) 0.8 %; HCT 42.8 % (39.6-50.0); HGB 14.5 g/dL (13.0-17.0); Lymphocytes # (A) 1.09 X 10*3/uL (0.90-5.00); Lymphocytes % (A) 12.1 %; MCH 29.1 pg (27.0-32.0); MCHC 33.9 g/dL (32.0-37.0); MCV 85.9 fL (80.0-97.0); Mean Platelet Volume 10.2 fL (9.5-12.2); Monocytes # (A) 0.73 X 10*3/uL (0.20-1.00); Monocytes % (A) 8.1 %; Neutrophils # (A) 7.03 X 10*3/uL (1.80-7.70); Neutrophils % (A) 77.7 %; Platelet Count 336 X 10*3/uL (140-440); RBC 4.98 X 10*6/uL (4.40-5.60); RDW 11.1 % (11.5-14.5); WBC 9.04 X 10*3/uL (4.50-10.00)
[2020-10-09 09:47] LABS: African American GFR (CKD) 96.4 (60.0-200.0); Albumin 3.7 g/dL (3.80-4.90); Albumin/Globulin Ratio 1.95 (1.60-3.17); Anion Gap 10.7 mmol/L (4.00-12.00); Calcium 8.2 mg/dL (8.7-10.3); Carbon Dioxide 25.3 mmol/L (21.6-31.8); Globulin 1.9 g/dL (1.6-3.3); Non-African American GFR(CKD) 83.2 (60.0-200.0); Potassium 4.6 mmol/L (3.5-5.5); Total Protein 5.6 g/dL (6.2-8.2)
[2020-10-09 12:06] LABS: Glucose,Whole Blood 270 mg/dL (75-99)
[2020-10-09] MEDS: AZITHROMYCIN 500 MG in SODIUM CHLORIDE 0.9% 250 ML IVPB SCH (12:59)
--- NOTE | 2020-10-09 15:21 | P.PN ---
Subjective Progress Note Date: 10/09/20 Principal diagnosis: COVID-19 pneumonia This is a 59-year-old white male patient with past medical history of hypertension, diabetes mellitus, lifetime nonsmoker, who presented to the emergency department yesterday on 10/03/2020 for evaluation of worsening cough, and shortness of breath. He diagnosed with COVID-19, his chest x-ray in the emergency department showed no active cardiopulmonary disease, and minimal fibrotic changes. His initial onset of symptoms was a week ago and started with the cough, fever and chills. He admits to having one episode of diarrhea, he states that the fever chills resolved, however his cough progressed, and he feels more short of breath with any exertion. His lab work was reviewed showing normal white count of 10.5, hemoglobin was 17, he had mild neutrophilia with the Detrol count of 9.1, and lymphopenia with lymphocyte count of 0.5, d-dimer was negative at 0.50, electrolytes were unremarkable, CO2 is 19, B1 is 23 creatinine was 0.95. His glucose is quite elevated at 311, patient was started on Decadron in the emergency department, his LDH is 248, and CRP was 13.5, AST and ALT mildly elevated at 37 and 57 respectively, alkaline phosphatase is normal at 72. CTA chest showed no evidence of pulmonary embolism, and showed posterior patchy pulmonary interstitial pneumonia. Patient currently on Lovenox 40 mg, he was empirically started on azithromycin and Rocephin, pro-calcitonin level is pending, and he is on oral Decadron 6 mg daily On 10/05/2020 patient seen in follow-up on medical surgical floor. Is having coughing spells, and is unable to take deep breaths, he is got shallow respirations, he is currently on 5 L of oxygen, pulse ox was around 90%. He is not able to do the incentive spirometer very well because it sends them into a coughing jag. Did have low-grade fevers early this morning with a temp of 100F . No complaints of chest discomfort, lung sounds reveal diffuse coarse crackles. Patient is on day 2 of Remdesivir, he received 1 unit of convalescent plasma. He also continues on azithromycin and Rocephin, dexamethasone 6 program daily, and prophylactic Lovenox. Today's labs have been reviewed showing white blood cell count 18.42, hemoglobin is 14.7, electrolytes are within normal limits, B1 is 36 and creatinine is 1.1. AST and ALT are relatively stable at 37 and 53 respectively, pro-calcitonin level was borderline at 0.47, and possibly a bacterial infection is also being considered patient is covered with Rocephin and Zithromax On 10/06/2030 patient seen in follow-up medical surgical floor, he is resting comfortably in bed, he is in no acute distress, his pulse ox on 5 L is 93%, he states his cough is improving, but still unable to take deep breast because of coughing spells, he states there is less burning in his chest with coughing episodes, he is on day 3 of Remdesivir treatment, he status post transfusion with 1 unit of convalescent plasma, he remains on multivitamins, he is on prophylactic dose Lovenox, and Decadron 6 mg daily, Legionella urine antigen came back negative, patient is on azithromycin and Rocephin, today's labs have been reviewed showing white blood cell count of 12.8, which is improving, electrolytes are within normal limits, BUN of 30, creatinine is 1. He's had no acute events overnight, his afebrile. Breathing more comfortably, he is working on incentive spirometer. On the 10/07/2020 patient seen in follow-up on medical surgical floor. Patient is on Remdesivir therefore, his oxygenation has increased, patient is currently requiring 8 L of oxygen, however clinically he looks quite comfortable, appears to be in no acute distress, his pulse ox on 8 L of oxygen is 91%, no fever, his vital signs have been stable, no chest discomfort, occasional cough, nonproductive. His chest x-ray today shows a low lung volumes with bilateral multifocal mid to lower lung opacities consistent with COVID-19 infection, may be slightly worsened or stable from prior studies. Today's labs have been reviewed, his CBC results are available, the rest of his blood work is still pending, white blood cell count is 10.7, hemoglobin is 14.3, his lymphocyte co unt is 1.05. No nausea vomiting diarrhea, he is tolerating oral intake, he continues on azithromycin and Rocephin for possibility of bacterial infection. Legionella urine antigen came back negative On 10/08/2020 patient seen in follow-up on medical surgical floor. Today is his last day of Remdesivir, he remains on subpleural oxygen currently on 5 L, his pulse ox is 89%, he is breathing comfortably, he is up in the chair today, and he states he is actually feeling good sitting up in the chair, appears to be in no acute distress, his coughing is better, and is having less coughing spells. he had no fever or chills, vital signs have been stable, he remains on Decadron at 6 mg daily, and prophylactic Lovenox, in addition he remains on azithromycin and Rocephin. Today's labs have been reviewed, he is d-dimer 0.39, electrolytes and renal profile are within normal limits. No nausea vomiting diarrhea, he is tolerating oral intake. On 10/09/2020 patient seen in follow-up on medical surgical floor, he is currently on 6 L of oxygen his pulse ox is 92%. Patient has been stable, he does feel weak, still has a cough at times, but appears to be no acute distress, he has been getting up to the chair, sitting up in the chair, appears to be no acute distress, lung sounds reveal bibasilar crackles, no wheezes. No completing chest pain. His last chest x-ray from 10/07/2020 showed low lung volumes with bilateral multifocal mid to lower lung opacities consistent with COVID-19 infection. no acute events overnight, no nausea or vomiting, he continues on Decadron 6 mg daily, he remains on azithromycin and Rocephin, he is on Lovenox 40 mg daily. Objective - Vital Signs Vital signs: Vital Signs Temp 98.2 F 10/09/20 10:00 Pulse 85 10/09/20 10:00 Resp 17 10/09/20 10:00 BP 127/72 10/09/20 10:00 Pulse Ox 92 L 10/09/20 10:00 Intake & Output 10/08/20 10/09/20 10/09/20 18:59 06:59 18:59 Intake Total 730 Output Total 1250 Balance 730 -1250 Intake: Intake, IV Titration 550 Amount Azithromycin 500 mg In 250 Sodium Chloride 0.9% 250 ml @ 250 mls/hr IVPB Q24H [facility] Rx#:[id number] Remdesivir 100 mg In 250 Sodium Chloride 0.9% 250 ml @ 250 mls/hr IVPB Q24H [facility] Rx#:[id number] cefTRIAXone 1 gm In 50 Sodium Chloride 0.9% 50 ml @ 100 mls/hr IVPB Q24H [facility] Rx#:[id number] Oral 180 Output: Urine 1250 Other: Voiding Method Urinal Urinal Urinal - Exam GENERAL EXAM: Alert, very pleasant 59-year-old white male on 6 l of oxygen, pulse ox is 91% comfortable in no apparent distress. HEAD: Normocephalic/atraumatic. EYES: Normal reaction of pupils, equal size. Conjunctiva pink, sclera white. NOSE: Clear with pink turbinates. THROAT: No erythema or exudates. NECK: No masses, no JVD, no thyroid enlargement, no adenopathy. CHEST: No chest wall deformity. Symmetrical expansion. LUNGS: Equal air entry with no crackles, wheeze, rhonchi or dullness. CVS: Regular rate and rhythm, normal S1 and S2, no gallops, no murmurs, no rubs ABDOMEN: Soft, nontender. No hepatosplenomegaly, normal bowel sounds, no guarding or rigidity. EXTREMITIES: No clubbing, no edema, no cyanosis, 2+ pulses and upper and lower extremities. MUSCULOSKELETAL: Muscle strength and tone normal. SPINE: No scoliosis or deformity SKIN: No rashes CENTRAL NERVOUS SYSTEM: Alert and oriented -3. No focal deficits, tone is normal in all 4 extremities. PSYCHIATRIC: Alert and oriented -3. Appropriate affect. Intact judgment and insight. - Labs CBC & Chem 7: 10/09/20 06:27 10/09/20 06:27 Labs: Abnormal Lab Results - Last 24 Hours (Table) 10/08/20 10/08/20 10/09/20 Range/Units 17:17 20:40 06:27 RDW 11.1 L (11.5-14.5) % Immature Gran # 0.10 H (0.00-0.04) X 10*3/uL BUN/Creatinine Ratio (12.00-20.00) Ratio Glucose (70-110) mg/dL POC Glucose (mg/dL) 306 H 223 H (75-99) mg/dL Calcium (8.7-10.3) mg/dL Total Protein (6.2-8.2) g/dL Albumin (3.80-4.90) g/dL 10/09/20 10/09/20 10/09/20 Range/Units 06:27 07:12 12:04 RDW (11.5-14.5) % Immature Gran # (0.00-0.04) X 10*3/uL BUN/Creatinine Ratio 23.00 H (12.00-20.00) Ratio Glucose 239 H (70-110) mg/dL POC Glucose (mg/dL) 203 H 270 H (75-99) mg/dL Calcium 8.2 L (8.7-10.3) mg/dL Total Protein 5.6 L (6.2-8.2) g/dL Albumin 3.70 L (3.80-4.90) g/dL Assessment and Plan Plan: Assessment: #1. Acute hypoxic respiratory failure related to acute COVID-19 pneumonia, patient is a candidate for Remdesivir, will be started on 10/04/2020. One dose of convalescent plasma was also ordered, in addition to prophylactic anticoagulation and steroids #2. Mild hyponatremia likely related to hypovolemia, and hyperglycemia, improved #3. History of hypertension #4. Diabetes mellitus type 2 #5. Nonsmoker #6. Elevated transaminases, likely related to viral pneumonia Plan: No worsening dyspnea, vital signs have been stable Continue weaning FiO2 to keep O2 sats is at 89% or above Currently at 6 L and breathing comfortably No fever or chills Today's labs have been noted Continue current dose Decadron and Lovenox I performed a history & physical examination of the patient and discussed their management with my nurse practitioner, Amparo Drew. I reviewed the nurse practitioner's note and agree with the documented findings and plan of care. Lung sounds are positive for bibasilar crackles The findings and the impression was discussed with the patient. I attest to the documentation by the nurse practitioner. Time with Patient: Less than 30
[2020-10-09 18:00] LABS: Glucose,Whole Blood 389 mg/dL (75-99)
[2020-10-09] MEDS: SODIUM CHLORIDE 0.9% 1,000 ML IV SCH (19:47)
[2020-10-09 21:11] LABS: Glucose,Whole Blood 327 mg/dL (75-99)
[2020-10-10] MEDS: guaiFENesin-DM 100-10MG/5ML 10 ML CUP PO SCH ×4 (02:32→17:00)
[2020-10-10 07:23] LABS: Glucose,Whole Blood 189 mg/dL (75-99)
[2020-10-10] MEDS: ZINC SULFATE 220 MG CAP PO SCH (08:10)
[2020-10-10] MEDS: HYDROcodone/APAP 10-325MG 1 EACH TAB PO PRN ×2 (08:10→18:02)
[2020-10-10] MEDS: INSULIN ASPART (NovoLOG) 100 UNIT/ML VIAL SQ SCH ×4 (08:10→20:38)
[2020-10-10] MEDS: ENOXAPARIN 40 MG/0.4 ML SYRINGE SQ SCH (08:10)
[2020-10-10] MEDS: lisinopriL 20 MG TAB PO SCH (08:11)
[2020-10-10] MEDS: CHOLECALCIFEROL 25 MCG (1000 IU) TABLET PO SCH (08:11)
[2020-10-10] MEDS: dexAMETHasone 2 MG TAB PO SCH (08:11)
[2020-10-10] MEDS: ASCORBIC ACID 500 MG TAB PO SCH (08:11)
[2020-10-10] MEDS: PANTOPRAZOLE 40 MG TABLET PO SCH (08:11)
[2020-10-10] MEDS: ALBUTEROL HFA INHALER INHALATION PRN ×3 (08:28→19:47)
[2020-10-10 09:41] LABS: Basophils % (A) 0 %; Eosinophils # (A) 0.1 k/uL (0-0.7); Eosinophils % (A) 1 %; HGB 14.8 gm/dL (13.0-17.5); Lymphocytes # (A) 0.8 k/uL (1.0-4.8); Lymphocytes % (A) 10 %; MCHC 34.4 g/dL (31.0-37.0); Mean Platelet Volume 7.3; Monocytes # (A) 0.6 k/uL (0-1.0); Monocytes % (A) 7 %; Neutrophils # (A) 6.5 k/uL (1.3-7.7); Neutrophils % (A) 80 %; Platelet Count 328 k/uL (150-450); RBC 4.94 m/uL (4.30-5.90); RDW 11.3 % (11.5-15.5); WBC 8.1 k/uL (3.8-10.6)
[2020-10-10 09:55] LABS: ALT 30 U/L (4-49); AST 24 U/L (17-59); African American GFR (CKD) >90 (>60 ml/min/1.73 sqM); Albumin 3.3 g/dL (3.5-5.0); Albumin/Globulin Ratio 1.2; Alkaline Phosphatase 69 U/L (38-126); Anion Gap 6 mmol/L; Blood Urea Nitrogen 25 mg/dL (9-20); Calcium 8.8 mg/dL (8.4-10.2); Carbon Dioxide 32 mmol/L (22-30); Chloride 99 mmol/L (98-107); Globulin 2.7 g/dL; Glucose 191 mg/dL (74-99); Non-African American GFR(CKD) >90 (>60 ml/min/1.73 sqM); Potassium 4.7 mmol/L (3.5-5.1); Sodium 137 mmol/L (137-145)
[2020-10-10 11:40] LABS: Glucose,Whole Blood 283 mg/dL (75-99)
[2020-10-10] MEDS: AZITHROMYCIN 500 MG in SODIUM CHLORIDE 0.9% 250 ML IVPB SCH (11:57)
--- NOTE | 2020-10-10 12:58 | P.PN ---
Subjective Progress Note Date: 10/10/20 Principal diagnosis: COVID-19 pneumonia This is a 59-year-old white male patient with past medical history of hypertension, diabetes mellitus, lifetime nonsmoker, who presented to the emergency department yesterday on 10/03/2020 for evaluation of worsening cough, and shortness of breath. He diagnosed with COVID-19, his chest x-ray in the emergency department showed no active cardiopulmonary disease, and minimal fibrotic changes. His initial onset of symptoms was a week ago and started with the cough, fever and chills. He admits to having one episode of diarrhea, he states that the fever chills resolved, however his cough progressed, and he feels more short of breath with any exertion. His lab work was reviewed showing normal white count of 10.5, hemoglobin was 17, he had mild neutrophilia with the Detrol count of 9.1, and lymphopenia with lymphocyte count of 0.5, d-dimer was negative at 0.50, electrolytes were unremarkable, CO2 is 19, B1 is 23 creatinine was 0.95. His glucose is quite elevated at 311, patient was started on Decadron in the emergency department, his LDH is 248, and CRP was 13.5, AST and ALT mildly elevated at 37 and 57 respectively, alkaline phosphatase is normal at 72. CTA chest showed no evidence of pulmonary embolism, and showed posterior patchy pulmonary interstitial pneumonia. Patient currently on Lovenox 40 mg, he was empirically started on azithromycin and Rocephin, pro-calcitonin level is pending, and he is on oral Decadron 6 mg daily On 10/05/2020 patient seen in follow-up on medical surgical floor. Is having coughing spells, and is unable to take deep breaths, he is got shallow respirations, he is currently on 5 L of oxygen, pulse ox was around 90%. He is not able to do the incentive spirometer very well because it sends them into a coughing jag. Did have low-grade fevers early this morning with a temp of 100F . No complaints of chest discomfort, lung sounds reveal diffuse coarse crackles. Patient is on day 2 of Remdesivir, he received 1 unit of convalescent plasma. He also continues on azithromycin and Rocephin, dexamethasone 6 program daily, and prophylactic Lovenox. Today's labs have been reviewed showing white blood cell count 18.42, hemoglobin is 14.7, electrolytes are within normal limits, B1 is 36 and creatinine is 1.1. AST and ALT are relatively stable at 37 and 53 respectively, pro-calcitonin level was borderline at 0.47, and possibly a bacterial infection is also being considered patient is covered with Rocephin and Zithromax On 10/06/2030 patient seen in follow-up medical surgical floor, he is resting comfortably in bed, he is in no acute distress, his pulse ox on 5 L is 93%, he states his cough is improving, but still unable to take deep breast because of coughing spells, he states there is less burning in his chest with coughing episodes, he is on day 3 of Remdesivir treatment, he status post transfusion with 1 unit of convalescent plasma, he remains on multivitamins, he is on prophylactic dose Lovenox, and Decadron 6 mg daily, Legionella urine antigen came back negative, patient is on azithromycin and Rocephin, today's labs have been reviewed showing white blood cell count of 12.8, which is improving, electrolytes are within normal limits, BUN of 30, creatinine is 1. He's had no acute events overnight, his afebrile. Breathing more comfortably, he is working on incentive spirometer. On the 10/07/2020 patient seen in follow-up on medical surgical floor. Patient is on Remdesivir therefore, his oxygenation has increased, patient is currently requiring 8 L of oxygen, however clinically he looks quite comfortable, appears to be in no acute distress, his pulse ox on 8 L of oxygen is 91%, no fever, his vital signs have been stable, no chest discomfort, occasional cough, nonproductive. His chest x-ray today shows a low lung volumes with bilateral multifocal mid to lower lung opacities consistent with COVID-19 infection, may be slightly worsened or stable from prior studies. Today's labs have been reviewed, his CBC results are available, the rest of his blood work is still pending, white blood cell count is 10.7, hemoglobin is 14.3, his lymphocyte co unt is 1.05. No nausea vomiting diarrhea, he is tolerating oral intake, he continues on azithromycin and Rocephin for possibility of bacterial infection. Legionella urine antigen came back negative On 10/08/2020 patient seen in follow-up on medical surgical floor. Today is his last day of Remdesivir, he remains on subpleural oxygen currently on 5 L, his pulse ox is 89%, he is breathing comfortably, he is up in the chair today, and he states he is actually feeling good sitting up in the chair, appears to be in no acute distress, his coughing is better, and is having less coughing spells. he had no fever or chills, vital signs have been stable, he remains on Decadron at 6 mg daily, and prophylactic Lovenox, in addition he remains on azithromycin and Rocephin. Today's labs have been reviewed, he is d-dimer 0.39, electrolytes and renal profile are within normal limits. No nausea vomiting diarrhea, he is tolerating oral intake. On 10/09/2020 patient seen in follow-up on medical surgical floor, he is currently on 6 L of oxygen his pulse ox is 92%. Patient has been stable, he does feel weak, still has a cough at times, but appears to be no acute distress, he has been getting up to the chair, sitting up in the chair, appears to be no acute distress, lung sounds reveal bibasilar crackles, no wheezes. No completing chest pain. His last chest x-ray from 10/07/2020 showed low lung volumes with bilateral multifocal mid to lower lung opacities consistent with COVID-19 infection. no acute events overnight, no nausea or vomiting, he continues on Decadron 6 mg daily, he remains on azithromycin and Rocephin, he is on Lovenox 40 mg daily. Evaluation on 10/10/2020 patient remains on 6 L of oxygen and his pulse ox is 90-91%, patient does desaturate when he is speaking to 87%, otherwise his breathing seems to be stable, no worsening dyspnea, he has been getting up in a chair, still gets short of breath however the coughing is improving, still a very shallow breather, lung sounds are diminished with bibasilar crackles, no new chest x-ray from today. His most recent chest x-ray from 10/07/2020 showed low lung volumes with bilateral multifocal mid to lower lung opacities, possible slight improvement, he remains on Decadron 6 mg daily, he is on prophylactic Lovenox, and most recent d-dimer is 0.39 Objective - Vital Signs Vital signs: Vital Signs Temp 98.2 F 10/10/20 10:00 Pulse 80 10/10/20 10:00 Resp 22 10/10/20 10:00 BP 115/73 10/10/20 10:00 Pulse Ox 91 L 10/10/20 10:00 Intake & Output 10/09/20 10/10/20 10/10/20 18:59 06:59 18:59 Intake Total 1910 Output Total 400 Balance 1910 -400 Weight 98.883 kg Intake: Intake, IV Titration 460 Amount Azithromycin 500 mg In 250 Sodium Chloride 0.9% 250 ml @ 250 mls/hr IVPB Q24H [facility] Rx#:[id number] Sodium Chloride 0.9% 1, 160 000 ml @ 20 mls/hr IV . Q24H [facility] Rx#:[id number] cefTRIAXone 1 gm In 50 Sodium Chloride 0.9% 50 ml @ 100 mls/hr IVPB Q24H [facility] Rx#:[id number] Oral 1450 Output: Urine 400 Other: Voiding Method Urinal Urinal Urinal # Voids 4 2 - Exam GENERAL EXAM: Alert, very pleasant 59-year-old white male on 6 l of oxygen, pulse ox is 91% comfortable in no apparent distress. HEAD: Normocephalic/atraumatic. EYES: Normal reaction of pupils, equal size. Conjunctiva pink, sclera white. NOSE: Clear with pink turbinates. THROAT: No erythema or exudates. NECK: No masses, no JVD, no thyroid enlargement, no adenopathy. CHEST: No chest wall deformity. Symmetrical expansion. LUNGS: Equal air entry with no crackles, wheeze, rhonchi or dullness. CVS: Regular rate and rhythm, normal S1 and S2, no gallops, no murmurs, no rubs ABDOMEN: Soft, nontender. No hepatosplenomegaly, normal bowel sounds, no guarding or rigidity. EXTREMITIES: No clubbing, no edema, no cyanosis, 2+ pulses and upper and lower extremities. MUSCULOSKELETAL: Muscle strength and tone normal. SPINE: No scoliosis or deformity SKIN: No rashes CENTRAL NERVOUS SYSTEM: Alert and oriented -3. No focal deficits, tone is normal in all 4 extremities. PSYCHIATRIC: Alert and oriented -3. Appropriate affect. Intact judgment and insight. - Labs CBC & Chem 7: 10/10/20 07:18 10/10/20 07:18 Labs: Abnormal Lab Results - Last 24 Hours (Table) 10/09/20 10/09/20 10/10/20 Range/Units 17:59 21:09 07:18 RDW 11.3 L (11.5-15.5) % Lymphocytes # 0.8 L (1.0-4.8) k/uL Carbon Dioxide (22-30) mmol/L BUN (9-20) mg/dL Glucose (74-99) mg/dL POC Glucose (mg/dL) 389 H 327 H (75-99) mg/dL Total Protein (6.3-8.2) g/dL Albumin (3.5-5.0) g/dL 10/10/20 10/10/20 10/10/20 Range/Units 07:18 07:22 11:36 RDW (11.5-15.5) % Lymphocytes # (1.0-4.8) k/uL Carbon Dioxide 32 H (22-30) mmol/L BUN 25 H (9-20) mg/dL Glucose 191 H (74-99) mg/dL POC Glucose (mg/dL) 189 H 283 H (75-99) mg/dL Total Protein 6.0 L (6.3-8.2) g/dL Albumin 3.3 L (3.5-5.0) g/dL Assessment and Plan Plan: Assessment: #1. Acute hypoxic respiratory failure related to acute COVID-19 pneumonia, patient is a candidate for Remdesivir, will be started on 10/04/2020. One dose of convalescent plasma was also ordered, in addition to prophylactic anticoagulation and steroids #2. Mild hyponatremia likely related to hypovolemia, and hyperglycemia, improved #3. History of hypertension #4. Diabetes mellitus type 2 #5. Nonsmoker #6. Elevated transaminases, likely related to viral pneumonia, improved and are now WNL Plan: No worsening dyspnea, vital signs have been stable FiO2 was cut to 5 L, continue weaning to keep O2 saturation at 89% or above Vital signs have been stable, No fever or chills, today's labs have been noted, continue current dose Decadron and Lovenox Consider discharge home once patient gets down to less than 5 L of supplemental oxygen Follow-up d-dimer, inflammatory markers tomorrow I performed a history & physical examination of the patient and discussed their management with my nurse practitioner, Amparo Drew. I reviewed the nurse pr actitioner's note and agree with the documented findings and plan of care. Lung sounds are positive for bibasilar crackles The findings and the impression was discussed with the patient. I attest to the documentation by the nurse practitioner. Time with Patient: Less than 30
--- NOTE | 2020-10-10 15:01 | P.PN ---
<Jaskaran Parker - Last Filed: 10/10/20 14:37> Subjective Progress Note Date: 10/10/20 Hospital course: Patient is a 59-year-old male with a past medical history of hypertension and type II [id number] diabetes mellitus. He presented to the hospital on 10/03/20 for evaluation of worsening cough and shortness of breath. He was seen and fully evaluated in the emergency department. He was found to be hypoxic with SpO2 of 89% on room air requiring oxygen supplementation. EKG was obtained showing sinus tachycardia at 108 bpm with no noted T-wave or ST abnormalities present showing no signs of acute ischemia. Chest x-ray was obtained showing no acute cardiopulmonary process. CTA revealed no evidence of pulmonary embolism but positive for posterior patchy pulmonary interstitial pneumonia. Covid 19 PCR POSITIVE. Patient was admitted under our services along with consultation to pulmonology. Patient received completed 5 day course of Remdesivir on 10/08/20 and reeived 1 unit of convalescent plasma. Per recommendation of pulmonology, patient was also placed on Rocephin and azithromycin secondary to slightly elevated pro-calcitonin of 0.47 and mild leukocytosis. Patient to continue with vitamin C, vitamin D, zinc, and melatonin and is currently on day 8 of steroids with Decadron. Physical exam: 10/10/20: Patient was seen and fully evaluated at the bedside this morning. He reports that he feels weak and fatigued, but states breathing has improved. Patient continues to have coarse cough and reports significant shortness of breath with minimal exertion. Patient was on 6 L high flow nasal cannula with SpO2 of 91% at time of assessment. Respirations were even and unlabored. Lungs soft crackles at bilateral bases. He reports that his appetite has returned and he has been able to tolerate an increase his oral intake. Patient denies having any headache, lightheadedness, dizziness, changes in vision or hearing, diaphoresis, chest pain, palpitations, abdominal pain, nausea, vomiting, or experiencing any numbness/tingling/weakness in extremities. PT/OT consult was placed to assess endurance and anticipate any further discharge needs. General: non toxic, no distress, appears at stated age Derm: warm, dry Head: atraumatic, normocephalic, symmetric Eyes: EOMI, no lid lag, anicteric sclera Mouth: no lip lesion, mucus membranes moist Cardiovascular: S1S2 normal with regular rate and rhythm. No murmur, gallop, or rubs. Posterior tibial pulses palpated bilaterally. Cap refill less than 2 seconds. Lungs: Respirations even, regular, and unlabored on 6 L high flow nasal cannula. SpO2 91% at time of assessment. Lungs with some crackles noted at bilateral bases otherwise no wheezes, rhonchi, or rales present. No accessory muscle usage. Abdominal: soft, nontender to palpation, no guarding, no appreciable organomegaly Ext: no gross muscle atrophy, no edema, no contractures Neuro: CN II-XI grossly intact, no focal neuro deficits Psych: Alert, oriented, appropriate affect Assessment and Plan of Care: Acute respiratory failure with hypoxia secondary to Covid 19 pneumonia -Covid 19 PCR POSITIVE on 10/03/20. -Initial Chest x-ray was obtained showing no acute cardiopulmonary process and repeat chest x-ray obtained 10/07/20 revealing low lung volumes with bilateral multifocal mid to lower lung opacities consistent with Covid 19 infection. We will repeat chest x-ray tomorrow morning. -CTA revealed no evidence of pulmonary embolism but positive for posterior patchy pulmonary interstitial pneumonia. -Patient to continue to receive oxygenation as needed to maintain SpO2 equal to or greater than 90%, we will wean as patient tolerates. Patient currently on 6 L high flow nasal cannula with SpO2 of 91%. -Patient received completed 5 day course of Remdesivir on 10/08/20 and reeived 1 unit of convalescent plasma. -Per recommendation of pulmonology, patient was also placed on Rocephin and azithromycin secondary to slightly elevated pro-calcitonin of 0.47 and mild leukocytosis. -Patient to continue with vitamin C, vitamin D, zinc, and melatonin. -Steroids: Pt currently on day 8 of steroids with Decadron. -Encourage incentive spirometry 10-15 times hourly while awake. -PT/OT consultation was placed this morning to evaluate patient's endurance and anticipate further discharge needs. Hypertension -Monitor vital signs and continue daily medication management. Diabetes mellitus -Continue to hold Glucophage. Patient on glycemic protocol with low-dose sliding scale with NovoLog. CODE STATUS: Full code DVT prophylaxis: Lovenox Discussed with: Patient and RN Anticipated discharge date: Clinical course to determine Anticipated discharge place: Home with home care A total of 45 minutes was spent on the care of this complex patient more than 50% of the time was spent in counseling and care coordination. Objective - Vital Signs Vital signs: Vital Signs Temp 98.2 F 10/10/20 10:00 Pulse 80 10/10/20 10:00 Resp 22 10/10/20 10:00 BP 115/73 10/10/20 10:00 Pulse Ox 91 L 10/10/20 10:00 Intake & Output 10/09/20 10/10/20 10/10/20 18:59 06:59 18:59 Intake Total 1910 Output Total 400 Balance 1910 -400 Weight 98.883 kg Intake: Intake, IV Titration 460 Amount Azithromycin 500 mg In 250 Sodium Chloride 0.9% 250 ml @ 250 mls/hr IVPB Q24H [facility] Rx#:[id number] Sodium Chloride 0.9% 1, 160 000 ml @ 20 mls/hr IV . Q24H [facility] Rx#:[id number] cefTRIAXone 1 gm In 50 Sodium Chloride 0.9% 50 ml @ 100 mls/hr IVPB Q24H [facility] Rx#:[id number] Oral 1450 Output: Urine 400 Other: Voiding Method Urinal Urinal Urinal # Voids 4 2 - Labs CBC & Chem 7: 10/10/20 07:18 10/10/20 07:18 Labs: Abnormal Lab Results - Last 24 Hours (Table) 10/09/20 10/09/20 10/09/20 Range/Units 12:04 17:59 21:09 RDW (11.5-15.5) % Lymphocytes # (1.0-4.8) k/uL Carbon Dioxide (22-30) mmol/L BUN (9-20) mg/dL Glucose (74-99) mg/dL POC Glucose (mg/dL) 270 H 389 H 327 H (75-99) mg/dL Total Protein (6.3-8.2) g/dL Albumin (3.5-5.0) g/dL 10/10/20 10/10/20 10/10/20 Range/Units 07:18 07:18 07:22 RDW 11.3 L (11.5-15.5) % Lymphocytes # 0.8 L (1.0-4.8) k/uL Carbon Dioxide 32 H (22-30) mmol/L BUN 25 H (9-20) mg/dL Glucose 191 H (74-99) mg/dL POC Glucose (mg/dL) 189 H (75-99) mg/dL Total Protein 6.0 L (6.3-8.2) g/dL Albumin 3.3 L (3.5-5.0) g/dL <ToryLorie A - Last Filed: 10/10/20 20:23> Subjective I discussed the care with Jaskaran Parker NP and reviewed the findings and plan as documented in the note above. I did not physically speak with or examine the patient on this date. Objective - Vital Signs Vital signs: Vital Signs Temp 98.0 F 10/10/20 17:30 Pulse 82 10/10/20 17:30 Resp 22 10/10/20 17:30 BP 103/63 10/10/20 17:30 Pulse Ox 89 L 10/10/20 17:30 Intake & Output 10/10/20 10/10/20 10/11/20 06:59 18:59 06:59 Output Total 400 800 Balance -400 -800 Weight 98.883 kg Output: Urine 400 800 Other: Voiding Method Urinal Urinal # Voids 2 - Labs CBC & Chem 7: 10/10/20 07:18 10/10/20 07:18 Labs: Abnormal Lab Results - Last 24 Hours (Table) 10/09/20 10/10/20 10/10/20 Range/Units 21:09 07:18 07:18 RDW 11.3 L (11.5-15.5) % Lymphocytes # 0.8 L (1.0-4.8) k/uL Carbon Dioxide 32 H (22-30) mmol/L BUN 25 H (9-20) mg/dL Glucose 191 H (74-99) mg/dL POC Glucose (mg/dL) 327 H (75-99) mg/dL Total Protein 6.0 L (6.3-8.2) g/dL Albumin 3.3 L (3.5-5.0) g/dL 10/10/20 10/10/20 10/10/20 Range/Units 07:22 11:36 16:48 RDW (11.5-15.5) % Lymphocytes # (1.0-4.8) k/uL Carbon Dioxide (22-30) mmol/L BUN (9-20) mg/dL Glucose (74-99) mg/dL POC Glucose (mg/dL) 189 H 283 H 339 H (75-99) mg/dL Total Protein (6.3-8.2) g/dL Albumin (3.5-5.0) g/dL
[2020-10-10 16:54] LABS: Glucose,Whole Blood 339 mg/dL (75-99)
[2020-10-10 20:23] LABS: Glucose,Whole Blood 328 mg/dL (75-99)
[2020-10-10] MEDS: INSULIN DETEMIR (LEVEMIR) 100 UNIT/ML SYR SQ SCH (20:37)
[2020-10-10] MEDS: SODIUM CHLORIDE 0.9% 1,000 ML IV SCH (20:55)
[2020-10-11] MEDS: guaiFENesin-DM 100-10MG/5ML 10 ML CUP PO SCH ×5 (00:30→23:26)
[2020-10-11 02:20] LABS: Glucose,Whole Blood 246 mg/dL (75-99)
[2020-10-11 07:34] LABS: Glucose,Whole Blood 204 mg/dL (75-99)
[2020-10-11] MEDS: ZINC SULFATE 220 MG CAP PO SCH (07:55)
[2020-10-11] MEDS: ASCORBIC ACID 500 MG TAB PO SCH (07:55)
[2020-10-11] MEDS: dexAMETHasone 2 MG TAB PO SCH (07:55)
[2020-10-11] MEDS: CHOLECALCIFEROL 25 MCG (1000 IU) TABLET PO SCH (07:56)
[2020-10-11] MEDS: INSULIN ASPART (NovoLOG) 100 UNIT/ML VIAL SQ SCH ×4 (07:56→21:11)
[2020-10-11] MEDS: PANTOPRAZOLE 40 MG TABLET PO SCH (07:56)
[2020-10-11] MEDS: ENOXAPARIN 40 MG/0.4 ML SYRINGE SQ SCH (07:56)
[2020-10-11] MEDS: lisinopriL 20 MG TAB PO SCH (07:56)
[2020-10-11] MEDS: HYDROcodone/APAP 10-325MG 1 EACH TAB PO PRN ×2 (08:03→21:12)
--- NOTE | 2020-10-11 08:45 | XR ---
EXAMINATION TYPE: XR chest 1V portable DATE OF EXAM: 10/11/2020 COMPARISON: 10/07/2020 INDICATION: Covid TECHNIQUE: Single frontal view of the chest is obtained. FINDINGS: The heart size is normal. The pulmonary vasculature is normal. Mild infiltrates at the left base. Right lower lung field infiltrate has improved with minimal residu al. IMPRESSION: 1. Increasing consolidation left lung base. 2. Improving right lower lung field infiltrates.
[2020-10-11] MEDS: ALBUTEROL HFA INHALER INHALATION PRN ×2 (09:08→16:09)
--- NOTE | 2020-10-11 11:42 | P.PN ---
Subjective Progress Note Date: 10/11/20 This is a 59-year-old white male patient with past medical history of hypertension, diabetes mellitus, lifetime nonsmoker, who presented to the emergency department yesterday on 10/03/2020 for evaluation of worsening cough, and shortness of breath. He diagnosed with COVID-19, his chest x-ray in the [facility] department showed no active cardiopulmonary disease, and minimal fibrotic changes. His initial onset of symptoms was a week ago and started with the cough, fever and chills. He admits to having one episode of diarrhea, he states that the fever chills resolved, however his cough progressed, and he feels more short of breath with any exertion. His lab work was reviewed showing normal white count of 10.5, hemoglobin was 17, he had mild neutrophilia with the Detrol count of 9.1, and lymphopenia with lymphocyte count of 0.5, d-dimer was negative at 0.50, electrolytes were unremarkable, CO2 is 19, B1 is 23 creatinine was 0.95. His glucose is quite elevated at 311, patient was started on Decadron in the emergency department, his LDH is 248, and CRP was 13.5, AST and ALT mildly elevated at 37 and 57 respectively, alkaline phosphatase is normal at 72. CTA chest showed no evidence of pulmonary embolism, and showed posterior patchy pulmonary interstitial pneumonia. Patient currently on Lovenox 40 mg, he was empirically started on azithromycin and Rocephin, pro-calcitonin level is p ending, and he is on oral Decadron 6 mg daily On 10/05/2020 patient seen in follow-up on medical surgical floor. Is having coughing spells, and is unable to take deep breaths, he is got shallow resp irations, he is currently on 5 L of oxygen, pulse ox was around 90%. He is not able to do the incentive spirometer very well because it sends them into a coughing jag. Did have low-grade fevers early this morning with a temp of 100F. No complaints of chest discomfort, lung sounds reveal diffuse coarse crackles. Patient is on day 2 of Remdesivir, he received 1 unit of convalescent plasma. He also continues on azithromycin and Rocephin, dexamethasone 6 program daily, and prophylactic Lovenox. Today's labs have been reviewed showing white blood cell count 18.42, hemoglobin is 14.7, electrolytes are within normal limits, B1 is 36 and creatinine is 1.1. AST and ALT are relatively stable at 37 and 53 respectively, pro-calcitonin level was borderline at 0.47, and possibly a bacterial infection is also being considered patient is covered with Rocephin and Zithromax On 10/06/2030 patient seen in follow-up medical surgical floor, he is resting comfortably in bed, he is in no acute distress, his pulse ox on 5 L is 93%, he states his cough is improving, but still unable to take deep breast because of coughing spells, he states there is less burning in his chest with coughing episodes, he is on day 3 of Remdesivir treatment, he status post transfusion with 1 unit of convalescent plasma, he remains on multivitamins, he is on prophylactic dose Lovenox, and Decadron 6 mg daily, Legionella urine antigen came back negative, patient is on azithromycin and Rocephin, today's labs have been reviewed showing white blood cell count of 12.8, which is improving, electrolytes are within normal limits, BUN of 30, creatinine is 1. He's had no acute events overnight, his afebrile. Breathing more comfortably, he is working on incentive spirometer. On the 10/07/2020 patient seen in follow-up on medical surgical floor. Patient is on Remdesivir therefore, his oxygenation has increased, patient is currently requiring 8 L of oxygen, however clinically he looks quite comfortable, appears to be in no acute distress, his pulse ox on 8 L of oxygen is 91%, no fever, his vital signs have been stable, no chest discomfort, occasional cough, nonproductive. His chest x-ray today shows a low lung volumes with bilateral multifocal mid to lower lung opacities consistent with COVID-19 infection, may be slightly worsened or stable from prior studies. Today's labs have been reviewed, his CBC results are available, the rest of his blood work is still pending, white blood cell count is 10.7, hemoglobin is 14.3, his lymphocyte count is 1.05. No nausea vomiting diarrhea, he is tolerating oral intake, he continues on azithromycin and Rocephin for possibility of bacterial infection. Legionella urine antigen came back negative On 10/08/2020 patient seen in follow-up on medical surgical floor. Today is his last day of Remdesivir, he remains on subpleural oxygen currently on 5 L, his pulse ox is 89%, he is breathing comfortably, he is up in the chair today, and he states he is actually feeling good sitting up in the chair, appears to be in no acute distress, his coughing is better, and is having less coughing spells. he had no fever or chills, vital signs have been stable, he remains on Decadron at 6 mg daily, and prophylactic Lovenox, in addition he remains on azithromycin and Rocephin. Today's labs have been reviewed, he is d-dimer 0.39, electrolytes and renal profile are within normal limits. No nausea vomiting diarrhea, he is tolerating oral intake. On 10/09/2020 patient seen in follow-up on medical surgical floor, he is currently on 6 L of oxygen his pulse ox is 92%. Patient has been stable, he does feel weak, still has a cough at times, but appears to be no acute distress, he has been getting up to the chair, sitting up in the chair, appears to be no acute distress, lung sounds reveal bibasilar crackles, no wheezes. No completing chest pain. His last chest x-ray from 10/07/2020 showed low lung volumes with bilateral multifocal mid to lower lung opacities consistent with COVID-19 infection. no acute events overnight, no nausea or vomiting, he continues on Decadron 6 mg daily, he remains on azithromycin and Rocephin, he is on Lovenox 40 mg daily. Evaluation on 10/10/2020 patient remains on 6 L of oxygen and his pulse ox is 90-91%, patient does desaturate when he is speaking to 87%, otherwise his breathing seems to be stable, no worsening dyspnea, he has been getting up in a chair, still gets short of breath however the coughing is improving, still a very shallow breather, lung sounds are diminished with bibasilar crackles, no new chest x-ray from today. His most recent chest x-ray from 10/07/2020 showed low lung volumes with bilateral multifocal mid to lower lung opacities, possible slight improvement, he remains on Decadron 6 mg daily, he is on prophylactic Lovenox, and most recent d-dimer is 0.39 I've 8 2020, the patient is down to 3 L of oxygen by nasal cannula. Doing well. No new complaints. No chest pain. No cough or sputum production. Patient remains on Decadron 6 mg on a daily basis and the patient is also on Lovenox for prophylaxis. Most recent chest x-ray from today was reviewed and compared to the earlier chest x-ray from 10/07/2020. Some limited improvement in infiltrates bilaterally. Right hemidiaphragm is slightly elevated. Obviously, findings of either stable or improved and I will say improved as long as the patient's vaccinations also improving and currently he is currently down to 3 L of oxygen by nasal cannula. Objective - Vital Signs Vital signs: Vital Signs Temp 98.0 F 10/11/20 10:00 Pulse 86 10/11/20 10:46 Resp 18 10/11/20 10:00 BP 138/71 10/11/20 10:00 Pulse Ox 93 L 10/11/20 10:46 Intake & Output 10/10/20 10/11/20 10/11/20 18:59 06:59 18:59 Output Total 800 400 Balance -800 -400 Weight 98.883 kg Output: Urine 800 400 Other: Voiding Method Urinal Urinal # Voids 3 - Exam GENERAL EXAM: Alert, very pleasant 59-year-old white male on 3 l of oxygen, pulse ox is 91% comfortable in no apparent distress. HEAD: Normocephalic/atraumatic. EYES: Normal reaction of pupils, equal size. Conjunctiva pink, sclera white. NOSE: Clear with pink turbinates. THROAT: No erythema or exudates. NECK: No masses, no JVD, no thyroid enlargement, no adenopathy. CHEST: No chest wall deformity. Symmetrical expansion. LUNGS: Equal air entry with no crackles, wheeze, rhonchi or dullness. CVS: Regular rate and rhythm, normal S1 and S2, no gallops, no murmurs, no rubs ABDOMEN: Soft, nontender. No hepatosplenomegaly, normal bowel sounds, no guarding or rigidity. EXTREMITIES: No clubbing, no edema, no cyanosis, 2+ pulses and upper and lower extremities. MUSCULOSKELETAL: Muscle strength and tone normal. SPINE: No scoliosis or deformity SKIN: No rashes CENTRAL NERVOUS SYSTEM: Alert and oriented -3. No focal deficits, tone is normal in all 4 extremities. PSYCHIATRIC: Alert and oriented -3. Appropriate affect. Intact judgment and insight. - Labs CBC & Chem 7: 10/10/20 07:18 10/10/20 07:18 Labs: Abnormal Lab Results - Last 24 Hours (Table) 10/10/20 10/10/20 10/10/20 Range/Units 11:36 16:48 20:22 POC Glucose (mg/dL) 283 H 339 H 328 H (75-99) mg/dL 10/11/20 10/11/20 Range/Units 02:13 07:33 POC Glucose (mg/dL) 246 H 204 H (75-99) mg/dL Assessment and Plan Plan: #1. Acute hypoxic respiratory failure related to acute COVID-19 pneumonia, patient is a candidate for Remdesivir, will be started on 10/04/2020. One dose of convalescent plasma was also ordered, in addition to prophylactic anticoagulation and steroids clinically, the patient is slowly improving and the patient is currently down to 3 L of oxygen by nasal cannula. #2. Mild hyponatremia likely related to hypovolemia, and hyperglycemia, improved #3. History of hypertension #4. Diabetes mellitus type 2 #5. Nonsmoker #6. Elevated transaminases, likely related to viral pneumonia, improved and are now WNL Plan: No worsening dyspnea, vital signs have been stable FiO2 was cut to 3 L, continue weaning to keep O2 saturation at 89% or above Chest x-ray findings are slightly improved on today's evaluation Vital signs have been stable, No fever or chills, today's labs have been noted, continue current dose Decadron and Lovenox D-dimer remains low. The rest of the seventh her markers are pending. Increased level of activity as tolerated. Asked the patient to ambulate and be active in the room several times a day. We'll continue to follow. He was reassured.
[2020-10-11 11:49] LABS: Glucose,Whole Blood 295 mg/dL (75-99)
[2020-10-11 13:31] LABS: C Reactive Protein 1.4 mg/dL (0.0-0.8)
--- NOTE | 2020-10-11 14:59 | P.PN ---
Subjective Progress Note Date: 10/11/20 Hospital course: Patient is a 59-year-old male with a past medical history of hypertension and type II [id number] diabetes mellitus. He presented to the hospital on 10/03/20 for evaluation of worsening cough and shortness of breath. He was seen and fully evaluated in the emergency department. He was found to be hypoxic with SpO2 of 89% on room air requiring oxygen supplementation. EKG was obtained showing sinus tachycardia at 108 bpm with no noted T-wave or ST abnormalities present showing no signs of acute ischemia. Chest x-ray was obtained showing no acute cardiopulmonary process. CTA revealed no evidence of pulmonary embolism but positive for posterior patchy pulmonary interstitial pneumonia. Covid 19 PCR POSITIVE. Patient was admitted under our services along with consultation to pulmonology. Patient received completed 5 day course of Remdesivir on 10/08/20 and reeived 1 unit of convalescent plasma. Per recommendation of pulmonology, patient was also placed on Rocephin and azithromycin secondary to slightly elevated pro-calcitonin of 0.47 and mild leukocytosis. Patient to continue with vitamin C, vitamin D, zinc, and reyes atonin and is currently on day 9 of steroids with Decadron. Physical exam: 10/11/20: Patient was seen and fully evaluated at the bedside this morning. He reports that his shortness of breath has improved but continues to have coarse cough and reports significant shortness of breath with minimal exertion. Patient's oxygen requirements improving, now down to 3 L O2 via nasal cannula with SpO2 93%. Repeat chest x-ray showing increasing consolidation of the left lung base with improving right lower lung infiltrates. Ambulatory pulse ox to be obtained and patient to be evaluated by PT/OT. If patient able to ambulate without significant desaturations likely discharge home tomorrow morning on oxygen with [facility]. Patient denies having any headache, lightheadedness, dizziness, changes in vision or hearing, diaphoresis, chest pain, palpitations, abdominal pain, nausea, vomiting, or experiencing any numbness/tingling/weakness in extremities. General: non toxic, no distress, appears at stated age Derm: warm, dry Head: atraumatic, normocephalic, symmetric Eyes: EOMI, no lid lag, anicteric sclera Mouth: no lip lesion, mucus membranes moist Cardiovascular: S1S2 normal with regular rate and rhythm. No murmur, gallop, or rubs. Posterior tibial pulses palpated bilaterally. Cap refill less than 2 seconds. Lungs: Respirations even, regular, and unlabored on 6 L high flow nasal cannula. SpO2 91% at time of assessment. Lungs with some crackles noted at bilateral bases otherwise no wheezes, rhonchi, or rales present. No accessory muscle usage. Abdominal: soft, nontender to palpation, no guarding, no appreciable organomegaly Ext: no gross muscle atrophy, no edema, no contractures Neuro: CN II-XI grossly intact, no focal neuro deficits Psych: Alert, oriented, appropriate affect Assessment and Plan of Care: Acute respiratory failure with hypoxia secondary to Covid 19 pneumonia -Covid 19 PCR POSITIVE on 10/03/20. -Initial Chest x-ray was obtained showing no acute cardiopulmonary process and repeat chest x-ray obtained 10/07/20 revealing low lung volumes with bilateral multifocal mid to lower lung opacities consistent with Covid 19 infection. Repeat chest x-ray completed 10/11/20 showing increasing consolidation in the left lung base with improving right lower lung infiltrates. -CTA revealed no evidence of pulmonary embolism but positive for posterior patchy pulmonary interstitial pneumonia. -Patient to continue to receive oxygenation as needed to maintain SpO2 equal to or greater than 90%, we will wean as patient tolerates. Patient's respiratory status improving and currently on 3 L nasal cannula with SpO2 of 93%. -Patient received completed 5 day course of Remdesivir on 10/08/20 and reeived 1 unit of convalescent plasma. -Patient to continue with vitamin C, vitamin D, zinc, and melatonin. -Steroids: Pt currently on day 9 of steroids with Decadron. -Encourage incentive spirometry 10-15 times hourly while awake. -Ambulatory pulse ox to be obtained along with evaluation by PT/OT to evaluate patient's endurance and anticipate further discharge needs. Hypertension -Monitor vital signs and continue daily medication management. Diabetes mellitus -Continue to hold Glucophage. Patient on glycemic protocol with low-dose sliding scale with NovoLog. CODE STATUS: Full code DVT prophylaxis: Lovenox Discussed with: Patient and RN Anticipated discharge date: Possible discharge tomorrow morning Anticipated discharge place: Home with home care and O2 A total of 45 minutes was spent on the care of this complex patient more than 5 0% of the time was spent in counseling and care coordination. Objective - Vital Signs Vital signs: Vital Signs Temp 98.5 F 10/11/20 14:00 Pulse 76 10/11/20 14:00 Resp 16 10/11/20 14:00 BP 125/75 10/11/20 14:00 Pulse Ox 93 L 10/11/20 14:00 Intake & Output 10/10/20 10/11/20 10/11/20 18:59 06:59 18:59 Output Total 800 400 Balance -800 -400 Weight 98.883 kg Output: Urine 800 400 Other: Voiding Method Urinal Urinal # Voids 3 - Labs CBC & Chem 7: 10/10/20 07:18 10/10/20 07:18 Labs: Abnormal Lab Results - Last 24 Hours (Table) 10/10/20 10/10/20 10/11/20 Range/Units 16:48 20:22 02:13 POC Glucose (mg/dL) 339 H 328 H 246 H (75-99) mg/dL C-Reactive Protein (0.0-0.8) mg/dL 10/11/20 10/11/20 10/11/20 Range/Units 07:17 07:33 11:48 POC Glucose (mg/dL) 204 H 295 H (75-99) mg/dL C-Reactive Protein 1.4 H (0.0-0.8) mg/dL
[2020-10-11 16:47] LABS: Glucose,Whole Blood 413 mg/dL (75-99)
[2020-10-11] MEDS ORDERED: INSULIN ASPART (NovoLOG) 100 UNIT/ML VIAL SQ ONE (16:48)
[2020-10-11 21:02] LABS: Glucose,Whole Blood 363 mg/dL (75-99)
[2020-10-11] MEDS: INSULIN DETEMIR (LEVEMIR) 100 UNIT/ML SYR SQ SCH (21:11)
[2020-10-11] MEDS: SODIUM CHLORIDE 0.9% 1,000 ML IV SCH (21:20)
[2020-10-12] MEDS: guaiFENesin-DM 100-10MG/5ML 10 ML CUP PO SCH ×3 (06:04→17:02)
[2020-10-12 07:14] LABS: Glucose,Whole Blood 220 mg/dL (75-99)
[2020-10-12] MEDS: ENOXAPARIN 40 MG/0.4 ML SYRINGE SQ SCH (07:20)
[2020-10-12] MEDS: ZINC SULFATE 220 MG CAP PO SCH (07:20)
[2020-10-12] MEDS: dexAMETHasone 2 MG TAB PO SCH (07:20)
[2020-10-12] MEDS: PANTOPRAZOLE 40 MG TABLET PO SCH (07:21)
[2020-10-12] MEDS: INSULIN ASPART (NovoLOG) 100 UNIT/ML VIAL SQ SCH ×3 (07:21→17:03)
[2020-10-12] MEDS: CHOLECALCIFEROL 25 MCG (1000 IU) TABLET PO SCH (07:21)
[2020-10-12] MEDS: lisinopriL 20 MG TAB PO SCH (07:21)
[2020-10-12] MEDS: ASCORBIC ACID 500 MG TAB PO SCH (07:21)
[2020-10-12] MEDS: HYDROcodone/APAP 10-325MG 1 EACH TAB PO PRN ×2 (07:32→15:18)
[2020-10-12] MEDS: ALBUTEROL HFA INHALER INHALATION PRN (08:03)
--- NOTE | 2020-10-12 09:20 | P.DS ---
Providers Date of admission: 10/03/20 19:35 Expected date of discharge: 10/12/20 Attending physician: Renetta Thomson MD Consults: 10/03/20 19:36 Consult Physician Routine Consulting Provider: Rodolfo May Consult Reason/Comments: covid 19, hypoxia Do you want consulting provider notified?: Yes Primary care physician: Elle Acevedo [facility] Course: Discharge Diagnosis: Acute respiratory failure with hypoxia secondary to Covid 19 pneumonia, discharged home on O2 Diabetes mellitus with hyperglycemia, increased glucophage to 500 mg BID and added Januvia 100 mg daily. Hypertension, stable Hospital course: Patient is a 59-year-old male with a past medical history of hypertension and type II szv-meoizgs-jpzurkknk diabetes mellitus. He presented to the hospital on 10/03/20 for evaluation of worsening cough and shortness of breath. He was seen and fully evaluated in the emergency department. He was found to be hypoxic with SpO2 of 89% on room air requiring oxygen supplementation. EKG was obtained showing sinus tachycardia at 108 bpm with no noted T-wave or ST abnormalities present showing no signs of acute ischemia. Chest x-ray was obtained showing no acute cardiopulmonary process. CTA revealed no evidence of pulmonary embolism but positive for posterior patchy pulmonary interstitial pneumonia. Covid 19 PCR POSITIVE. Patient was admitted under our services along with consultation to pulmonology. Patient received complete 5 day course of Remdesivir with last dose on 10/08/20 and reeived 1 unit of convalescent plasma. He completed 10 day course of steroids with Decadron. Pt's oxygen needs have successfully been weaned down and he is currently on 1 L O2 via nasal cannula maintaining SpO2 of 92-93% at rest.. Patient stable for discharge home at this time and to continue with vitamin C, vitamin D, zinc, and melatonin. Throughout hospitalization, pt has been having elevated blood glucose levels possibly secondary to current infection and daily steroid use, however his Hgb A1c was 10.9% and therefor pt's glucophage being increased to 500 mg BID and we are adding on Januvia 100 mg daily. Pt instructed to monitor blood glucose levels daily and keep journal to bring with him to next doctors appointment as additional medication changes may be needed. Pt going home on oxygen 1 L at rest and 4 L with ambulation and has been set up with [facility]. He was instructed to follow up with PCP-Dr. Acevedo in 1-2 days and Pulmonoligist-Dr. Carranza in one week. As recommended by Dr. Carranza, patient being discharged home on Xarelto 10 mg daily for the next 30 days. Physical exam: 10/12/20: Patient was seen and fully evaluated at the bedside this morning. He reports that his shortness of breath has resolved at rest and is improving with ambulation. General: non toxic, no distress, appears at stated age Derm: warm, dry Head: atraumatic, normocephalic, symmetric Eyes: EOMI, no lid lag, anicteric sclera Mouth: no lip lesion, mucus membranes moist Cardiovascular: S1S2 normal with regular rate and rhythm. No murmur, gallop, or rubs. Posterior tibial pulses palpated bilaterally. Cap refill less than 2 seconds. Lungs: Respirations even, regular, and unlabored on 6 L high flow nasal cannula. SpO2 91% at time of assessment. Lungs with some crackles noted at bilateral bases otherwise no wheezes, rhonchi, or rales present. No accessory muscle usage. Abdominal: soft, nontender to palpation, no guarding, no appreciable organomegaly Ext: no gross muscle atrophy, no edema, no contractures Neuro: CN II-XI grossly intact, no focal neuro deficits Psych: Alert, oriented, appropriate affect A total of 45 minutes of time were spent preparing this complex discharge summary. Patient Condition at Discharge: Fair Plan - Discharge Summary Discharge Rx Participant: No New Discharge Prescriptions: New guaiFENesin [Mucinex] 600 mg PO BID 14 Days #28 tab.er.12h Zinc Sulfate [Orazinc] 220 mg PO DAILY 30 Days #30 cap Albuterol Inhaler [Ventolin Hfa Inhaler] 2 puff INHALATION RT-QID PRN #1 inhaler PRN Reason: Shortness Of Breath Or Wheezing sitaGLIPtin PHOSPHATE [Januvia] 100 mg PO DAILY 30 Days #30 tab Mag Hydrox/Al Hydrox/Simeth [Maalox] 30 ml PO Q4HR PRN ml PRN Reason: Gi Upset Pantoprazole [Protonix] 40 mg PO AC-BRKFST tablet. Calcium Carbonate [Tums] 1,000 mg PO QID PRN chew PRN Reason: Heartburn Ascorbic Acid [Vitamin C] 1,000 mg PO DAILY 30 Days #60 tab Cholecalciferol [Vitamin D3 (25 Mcg = 1000 Iu)] 25 mcg PO DAILY 30 Days #30 tablet Rivaroxaban [Xarelto Starter Pack] 0 mg PO DIRECTED 30 Days #1 pack Continue fluvoxaMINE MALEATE 50 mg PO BID HYDROcodone/APAP 10-325MG [[place] 10-325] 1 tab PO Q8H PRN PRN Reason: Pain lisinopriL 20 mg PO DAILY Albuterol Sulfate [Ventolin HFA] 2 puff INHALATION RT-Q4H PRN #0 PRN Reason: Shortness Of Breath Changed metFORMIN HCL 500 mg PO BID 30 Days #60 tab Discontinued Ivermectin 21 mg PO BID Discharge Medication List HYDROcodone/APAP 10-325MG [[place] 10-325] 1 tab PO Q8H PRN 10/03/20 [History] fluvoxaMINE MALEATE 50 mg PO BID 10/03/20 [History] lisinopriL 20 mg PO DAILY 10/03/20 [History] Albuterol Inhaler [Ventolin Hfa Inhaler] 2 puff INHALATION RT-QID PRN #1 inhaler 10/11/20 [Rx] Albuterol Sulfate [Ventolin HFA] 2 puff INHALATION RT-Q4H PRN #0 10/11/20 [Rx] Ascorbic Acid [Vitamin C] 1,000 mg PO DAILY 30 Days #60 tab 10/11/20 [Rx] Calcium Carbonate [Tums] 1,000 mg PO QID PRN chew 10/11/20 [Rx] Cholecalciferol [Vitamin D3 (25 Mcg = 1000 Iu)] 25 mcg PO DAILY 30 Days #30 tablet 10/11/20 [Rx] Mag Hydrox/Al Hydrox/Simeth [Maalox] 30 ml PO Q4HR PRN ml 10/11/20 [Rx] Pantoprazole [Protonix] 40 mg PO AC-BRKFST tablet.dr 10/11/20 [Rx] Zinc Sulfate [Orazinc] 220 mg PO DAILY 30 Days #30 cap 10/11/20 [Rx] guaiFENesin [Mucinex] 600 mg PO BID 14 Days #28 tab.er.12h 10/11/20 [Rx] metFORMIN HCL 500 mg PO BID 30 Days #60 tab 10/11/20 [Rx] sitaGLIPtin PHOSPHATE [Januvia] 100 mg PO DAILY 30 Days #30 tab 10/11/20 [Rx] Rivaroxaban [Xarelto Starter Pack] 0 mg PO DIRECTED 30 Days #1 pack 10/12/20 [Rx] Follow up Appointment(s)/Referral(s): [facility], [NON-STAFF] - 1-2 Days Yadile Carranza MD [STAFF PHYSICIAN] - 1 Week Elle Acevedo MD [Primary Care Provider] - 1-2 Days Patient Instructions/Handouts: Coronavirus Disease 2019 (COVID-19) Activity/Diet/Wound Care/Special Instructions: Activity: As tolerated, it is important to take breaks and rest as needed. 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 Carranza. You will need to follow up in office with lithograph [employer] in 1 week for further evaluation and continued monitoring of your lung function. A pulse oximeter can be purchased at any local [facility], this is used to monitor your oxygen saturations. If your oxygen saturations drop below 90% and cannot be brought up simply by resting for a moment and taking a few deep breaths, it is important for you to seek medical attention immediately as you may need additional oxygen supplementation. Your lithograph press operator [employer], Dr. Carranza has recommended continuing you on DVT prophylaxis with Xarelto. You will take one 10 mg tablet daily for the next 30 days. It is also important for you to monitor blood glucose levels daily and document in a daily journal to bring with you to your next doctor's appointments. Your blood glucose levels have been running high and this is possibly secondary to your current infection and current use of steroids, but it also due to diet so it is important to monitor closely. Your Hgb A1c was 10.9% and therefor at this time we are increasing your Glucophage to 1000 mg daily and adding an additional medication Januvia to aid in controlling with hopes of normalizing your blood glucose levels and decreasing your A1c. This is why it is important to document your daily glucose levels in the journal and bring with you to your next doctor's appointment because you may need additional changes in these medications or further medications added on. Thank you for allowing us to participate in your care, it was truly a pleasure having you for our patient!!!!! I wish you and your a speedy recovery!!! Discharge Disposition: HOME WITH HOME HEALTH SERVICES
[2020-10-12 10:01] VITALS: RESP 16
--- NOTE | 2020-10-12 11:01 | P.PN ---
Subjective Progress Note Date: 10/12/20 This is a 59-year-old white male patient with past medical history of hypertension, diabetes mellitus, lifetime nonsmoker, who presented to the emergency department yesterday on 10/03/2020 for evaluation of worsening cough, and shortness of breath. He diagnosed with COVID-19, his chest x-ray in the [facility] department showed no active cardiopulmonary disease, and minimal fibrotic changes. His initial onset of symptoms was a week ago and started with the cough, fever and chills. He admits to having one episode of diarrhea, he states that the fever chills resolved, however his cough progressed, and he feels more short of breath with any exertion. His lab work was reviewed showing normal white count of 10.5, hemoglobin was 17, he had mild neutrophilia with the Detrol count of 9.1, and lymphopenia with lymphocyte count of 0.5, d-dimer was negative at 0.50, electrolytes were unremarkable, CO2 is 19, B1 is 23 creatinine was 0.95. His glucose is quite elevated at 311, patient was started on Decadron in the emergency department, his LDH is 248, and CRP was 13.5, AST and ALT mildly elevated at 37 and 57 respectively, alkaline phosphatase is normal at 72. CTA chest showed no evidence of pulmonary embolism, and showed posterior patchy pulmonary interstitial pneumonia. Patient currently on Lovenox 40 mg, he was empirically started on azithromycin and Rocephin, pro-calcitonin level is p ending, and he is on oral Decadron 6 mg daily On 10/05/2020 patient seen in follow-up on medical surgical floor. Is having coughing spells, and is unable to take deep breaths, he is got shallow resp irations, he is currently on 5 L of oxygen, pulse ox was around 90%. He is not able to do the incentive spirometer very well because it sends them into a coughing jag. Did have low-grade fevers early this morning with a temp of 100F. No complaints of chest discomfort, lung sounds reveal diffuse coarse crackles. Patient is on day 2 of Remdesivir, he received 1 unit of convalescent plasma. He also continues on azithromycin and Rocephin, dexamethasone 6 program daily, and prophylactic Lovenox. Today's labs have been reviewed showing white blood cell count 18.42, hemoglobin is 14.7, electrolytes are within normal limits, B1 is 36 and creatinine is 1.1. AST and ALT are relatively stable at 37 and 53 respectively, pro-calcitonin level was borderline at 0.47, and possibly a bacterial infection is also being considered patient is covered with Rocephin and Zithromax On 10/06/2030 patient seen in follow-up medical surgical floor, he is resting comfortably in bed, he is in no acute distress, his pulse ox on 5 L is 93%, he states his cough is improving, but still unable to take deep breast because of coughing spells, he states there is less burning in his chest with coughing episodes, he is on day 3 of Remdesivir treatment, he status post transfusion with 1 unit of convalescent plasma, he remains on multivitamins, he is on prophylactic dose Lovenox, and Decadron 6 mg daily, Legionella urine antigen came back negative, patient is on azithromycin and Rocephin, today's labs have been reviewed showing white blood cell count of 12.8, which is improving, electrolytes are within normal limits, BUN of 30, creatinine is 1. He's had no acute events overnight, his afebrile. Breathing more comfortably, he is working on incentive spirometer. On the 10/07/2020 patient seen in follow-up on medical surgical floor. Patient is on Remdesivir therefore, his oxygenation has increased, patient is currently requiring 8 L of oxygen, however clinically he looks quite comfortable, appears to be in no acute distress, his pulse ox on 8 L of oxygen is 91%, no fever, his vital signs have been stable, no chest discomfort, occasional cough, nonproductive. His chest x-ray today shows a low lung volumes with bilateral multifocal mid to lower lung opacities consistent with COVID-19 infection, may be slightly worsened or stable from prior studies. Today's labs have been reviewed, his CBC results are available, the rest of his blood work is still pending, white blood cell count is 10.7, hemoglobin is 14.3, his lymphocyte count is 1.05. No nausea vomiting diarrhea, he is tolerating oral intake, he continues on azithromycin and Rocephin for possibility of bacterial infection. Legionella urine antigen came back negative On 10/08/2020 patient seen in follow-up on medical surgical floor. Today is his last day of Remdesivir, he remains on subpleural oxygen currently on 5 L, his pulse ox is 89%, he is breathing comfortably, he is up in the chair today, and he states he is actually feeling good sitting up in the chair, appears to be in no acute distress, his coughing is better, and is having less coughing spells. he had no fever or chills, vital signs have been stable, he remains on Decadron at 6 mg daily, and prophylactic Lovenox, in addition he remains on azithromycin and Rocephin. Today's labs have been reviewed, he is d-dimer 0.39, electrolytes and renal profile are within normal limits. No nausea vomiting diarrhea, he is tolerating oral intake. On 10/09/2020 patient seen in follow-up on medical surgical floor, he is currently on 6 L of oxygen his pulse ox is 92%. Patient has been stable, he does feel weak, still has a cough at times, but appears to be no acute distress, he has been getting up to the chair, sitting up in the chair, appears to be no acute distress, lung sounds reveal bibasilar crackles, no wheezes. No completing chest pain. His last chest x-ray from 10/07/2020 showed low lung volumes with bilateral multifocal mid to lower lung opacities consistent with COVID-19 infection. no acute events overnight, no nausea or vomiting, he continues on Decadron 6 mg daily, he remains on azithromycin and Rocephin, he is on Lovenox 40 mg daily. Evaluation on 10/10/2020 patient remains on 6 L of oxygen and his pulse ox is 90-91%, patient does desaturate when he is speaking to 87%, otherwise his breathing seems to be stable, no worsening dyspnea, he has been getting up in a chair, still gets short of breath however the coughing is improving, still a very shallow breather, lung sounds are diminished with bibasilar crackles, no new chest x-ray from today. His most recent chest x-ray from 10/07/2020 showed low lung volumes with bilateral multifocal mid to lower lung opacities, possible slight improvement, he remains on Decadron 6 mg daily, he is on prophylactic Lovenox, and most recent d-dimer is 0.39 I've 8 2020, the patient is down to 3 L of oxygen by nasal cannula. Doing well. No new complaints. No chest pain. No cough or sputum production. Patient remains on Decadron 6 mg on a daily basis and the patient is also on Lovenox for prophylaxis. Most recent chest x-ray from today was reviewed and compared to the earlier chest x-ray from 10/07/2020. Some limited improvement in infiltrates bilaterally. Right hemidiaphragm is slightly elevated. Obviously, findings of either stable or improved and I will say improved as long as the patient's vaccinations also improving and currently he is currently down to 3 L of oxygen by nasal cannula. On 10/12/2020, the patient is doing well. His been weaned down to 1 L of oxygen by nasal cannula. He still desaturates with activity. The plan is to discharge this patient home along with a home oxygen concentrator. He is feeling well. Has no specific complaints. He is not fluid recovered he will need further recovery at home. He remains on Decadron 6 mg by mouth daily. He is also on Levemir insulin 10 units along with his vascular coverage. IV fluids are currently at 20 mL an hour. He remains on Lovenox for prophylaxis. His chest x-ray from yesterday was reviewed and it was showing right lower lobe pulmonary infiltrate. He is still having some ongoing limited cough. Oxygenation in general is improved. Objective - Vital Signs Vital signs: Vital Signs Temp 98.0 F 10/12/20 10:00 Pulse 102 H 10/12/20 10:01 Resp 16 10/12/20 10:00 BP 122/66 10/12/20 10:00 Pulse Ox 90 L 10/12/20 10:01 Intake & Output 10/11/20 10/12/20 10/12/20 18:59 06:59 18:59 Intake Total 200 480 Output Total 500 Balance 200 -20 Intake: Intake, IV Titration 200 Amount Sodium Chloride 0.9% 1, 200 000 ml @ 20 mls/hr IV . Q24H [facility] Rx#:[id number] Oral 480 Output: Urine 500 Other: Voiding Method Urinal # Voids 1 - Exam GENERAL EXAM: Alert, very pleasant 59-year-old white male on 1 l of oxygen, pulse ox is 91% comfortable in no apparent distress. HEAD: Normocephalic/atraumatic. EYES: Normal reaction of pupils, equal size. Conjunctiva pink, sclera white. NOSE: Clear with pink turbinates. THROAT: No erythema or exudates. NECK: No masses, no JVD, no thyroid enlargement, no adenopathy. CHEST: No chest wall deformity. Symmetrical expansion. LUNGS: Equal air entry with no crackles, wheeze, rhonchi or dullness. CVS: Regular rate and rhythm, normal S1 and S2, no gallops, no murmurs, no rubs ABDOMEN: Soft, nontender. No hepatosplenomegaly, normal bowel sounds, no guarding or rigidity. EXTREMITIES: No clubbing, no edema, no cyanosis, 2+ pulses and upper and lower extremities. MUSCULOSKELETAL: Muscle strength and tone normal. SPINE: No scoliosis or deformity SKIN: No rashes CENTRAL NERVOUS SYSTEM: Alert and oriented -3. No focal deficits, tone is normal in all 4 extremities. PSYCHIATRIC: Alert and oriented -3. Appropriate affect. Intact judgment and insight. - Labs CBC & Chem 7: 10/10/20 07:18 10/10/20 07:18 Labs: Abnormal Lab Results - Last 24 Hours (Table) 10/11/20 10/11/20 10/11/20 Range/Units 07:17 11:48 16:45 POC Glucose (mg/dL) 295 H 413 H (75-99) mg/dL C-Reactive Protein 1.4 H (0.0-0.8) mg/dL 10/11/20 10/12/20 Range/Units 21:01 07:12 POC Glucose (mg/dL) 363 H 220 H (75-99) mg/dL C-Reactive Protein (0.0-0.8) mg/dL Assessment and Plan Plan: #1. Acute hypoxic respiratory failure related to acute COVID-19 pneumonia, patient is a candidate for Remdesivir, will be started on 10/04/2020. One dose of convalescent plasma was also ordered, in addition to prophylactic anticoagulation and steroids clinically, the patient is slowly improving and the patient is currently down to 1 L of oxygen by nasal cannula. #2. Mild hyponatremia likely related to hypovolemia, and hyperglycemia, improved #3. History of hypertension #4. Diabetes mellitus type 2 #5. Nonsmoker #6. Elevated transaminases, likely related to viral pneumonia, improved and are now WNL Plan: No worsening dyspnea, vital signs have been stable Chest x-ray from yesterday was improving Oxygen will has been weaned down to 1 L per minute nasal cannula We'll be able to discharge home along with oxygen concentrator and the fluid be titrated to maintain a saturation above 90%. He has purchased a pulse oximeter at home. He will completed a course of Decadron for a total of 10 days at home. Recommend Xarelto 10 mg at the time of discharge for DVT prophylaxis. We'll see him in the office in follow-up.
[2020-10-12 11:36] LABS: Glucose,Whole Blood 266 mg/dL (75-99)
[2020-10-12 16:38] LABS: Glucose,Whole Blood 364 mg/dL (75-99)
[2020-10-12 17:27] VITALS: BP 148/72; PULSE 82; TEMP 98.2
== END 2020-10-12 18:24 | disposition home health service (06) | DRG 177 ==
LOC: EC 16:36 → 4SSUR 19:35
PROVIDERS: ADMIT Internal Medicine; ATTEND Internal Medicine
PROC: XW033E5 Introduction of Remdesivir Anti-infective into Peripheral Vein, Percutaneous Approach, New Technology Group 5 (ICD-10-PCS; principal; 2020-10-04)
PROC: XW13325 Transfusion of Convalescent Plasma (Nonautologous) into Peripheral Vein, Percutaneous Approach, New Technology Group 5 (ICD-10-PCS; principal; 2020-10-04)
PROC: 5A0955A Assistance with Respiratory Ventilation, Greater than 96 Consecutive Hours, High Flow/Velocity Cannula (ICD-10-PCS; 2020-10-06)
DX: U07.1 COVID-19 (principal); J96.01 Acute respiratory failure with hypoxia; J12.82 Pneumonia due to coronavirus disease 2019; E87.2 Acidosis; E87.1 Hypo-osmolality and hyponatremia; E11.65 Type 2 diabetes mellitus with hyperglycemia; E86.0 Dehydration; E86.1 Hypovolemia; I10 Essential (primary) hypertension; K21.9 Gastro-esophageal reflux disease without esophagitis; G47.30 Sleep apnea, unspecified; R74.01 Elevation of levels of liver transaminase levels; Z79.84 Long term (current) use of oral hypoglycemic drugs; Z79.899 Other long term (current) drug therapy; Z87.39 Personal history of other diseases of the musculoskeletal system and connective tissue; Z98.890 Other specified postprocedural states
CPT/HCPCS: 36415; 71045; 71275; 80048; 80053; 82728; 83036; 83615; 84145; 85025; 85379; 85610; 85730; 86140; 86850; 86900; 86901; 87449; 87636; 93005; 94640; 94760; 96374; 99285